=== PATIENT | male | born 1930 | race Caucasian/White ===

== ENCOUNTER 2018-05-01 12:10 | Inpatient (IN) | payer MEDICARE ==
[2018-05-01] MEDS: SODIUM CHLORIDE 0.9% 1L BAG IV* (12:46)
[2018-05-01 12:49] LABS: ADD MAN DIFF? NO
[2018-05-01 12:50] LABS: WHITE BLOOD COUNT 6.2 10^3/ul (4.8-10.8)
[2018-05-01 12:50] LABS: ABNORMAL IP MESSAGE 1; BASOPHILS % 0.3 % (0.0-2.0); EOSINOPHILS # 0.2 10^3/ul (0.0-0.5); EOSINOPHILS % 2.6 % (0.0-7.0); HEMATOCRIT 28.9 % (42.0-52.0); HEMOGLOBIN 8.7 g/dl (14.0-18.0); LYMPHOCYTES # 0.4 10^3/ul (0.8-2.9); LYMPHOCYTES % 5.7 % (15.0-51.0); MEAN CORPUSCULAR HEMOGLOBIN 27.2 pg (29.0-33.0); MEAN CORPUSCULAR HGB CONC 30.1 g/dl (32.0-37.0); MEAN CORPUSCULAR VOLUME 90.3 fl (82.0-101.0); MEAN PLATELET VOLUME 9.4 fl (7.4-10.4); MONOCYTE # 0.7 10^3/ul (0.3-0.9); MONOCYTES % 10.5 % (0.0-11.0); NEUTROPHILS % 80.1 % (39.0-77.0); PLATELET COUNT 292 10^3/UL (140-415); POSITIVE DIFF @See below; RED CELL DISTRIBUTION WIDTH 15.9 % (11.5-14.5)
[2018-05-01] MEDS: CEFEPIME 2GM/50 ML (PMX) 50 ML IVPB (13:00)
[2018-05-01 13:11] LABS: ALANINE AMINOTRANSFERASE 28 IU/L (13-69); ALBUMIN 3.4 g/dl (3.3-4.9); ALBUMIN/GLOBULIN RATIO 0.91; ALKALINE PHOSPHATASE 101 IU/L (42-121); ANION GAP 13 (8-16); ASPARTATE AMINO TRANSFERASE 22 IU/L (15-46); BILIRUBIN,INDIRECT 0.6 mg/dl (0-1.1); BILIRUBIN,TOTAL 0.6 mg/dl (0.2-1.3); BLOOD UREA NITROGEN 21 mg/dl (7-20); CALCIUM 8.7 mg/dl (8.4-10.2); CARBON DIOXIDE 25 mmol/L (21-31); CHLORIDE 109 mmol/L (97-110); CREATININE 1.43 mg/dl (0.61-1.24); GLUCOSE 111 mg/dl (70-220); POTASSIUM 5.1 mmol/L (3.5-5.1); SODIUM 142 mmol/L (135-144); TOTAL PROTEIN 7.1 g/dl (6.1-8.1)
[2018-05-01 13:12] LABS: LACTIC ACID 0.9 mmol/L (0.5-2.0)
[2018-05-01 13:14] LABS: INR 2.67; PROTIME 29.2 Sec (11.9-14.9); PT RATIO 2.3
[2018-05-01 13:16] LABS: PARTIAL THROMBOPLASTIN TIME 62.1 Sec (25.0-35.0)
[2018-05-01 13:22] LABS: TROPONIN-I 0.034 ng/ml (0.000-0.120)
[2018-05-01] MEDS: VANCOMYCIN 1 GM (PMX) 250 ML IVPB (13:30)
[2018-05-01 14:13] LABS: ADD UMIC YES; UR ASCORBIC ACID 40 mg/dL (NEGATIVE); UR BACTERIA MODERATE /HPF (NONE SEEN); UR BILIRUBIN (Dip) NEGATIVE (NEGATIVE); UR BLOOD (Dip) NEGATIVE (NEGATIVE); UR CLARITY SLIGHTLY CLOUDY (CLEAR); UR COLOR YELLOW (YELLOW); UR GLUCOSE (Dip) NEGATIVE (NEGATIVE); UR KETONES (Dip) NEGATIVE (NEGATIVE); UR LEUKOCYTE ESTERASE (Dip) 2+ Leu/ul (NEGATIVE); UR NITRITE (Dip) POSITIVE (NEGATIVE); UR RBC 1 /HPF (0-5); UR SPECIFIC GRAVITY (Dip) 1.013 (1.003-1.030); UR TOTAL PROTEIN (Dip) 1+ mg/dl (NEGATIVE); UR UROBILINOGEN (Dip) NEGATIVE (NEGATIVE); UR WBC 77 /HPF (0-5)
[2018-05-01] MEDS ORDERED: ONDANSETRON 4 MG INJ IV ×2 (14:30→15:00)
[2018-05-01] MEDS ORDERED: ACETAMINOPHEN 325 MG TAB PO (14:30)
[2018-05-01] MEDS ORDERED: MAGNESIUM HYDROXIDE 30ML CUP PO (15:00)
[2018-05-01] MEDS ORDERED: NACL 0.9% 3 ML SYG IV (15:00)
[2018-05-01] MEDS ORDERED: BISACODYL 10 MG SUPP PR (15:00)
[2018-05-01] MEDS ORDERED: ACETAMINOPHEN 650 MG SUPP PR (15:00)
[2018-05-01] MEDS: HYDROCODONE/APAP (5/325) TAB PO (16:11)
[2018-05-01] MEDS: ALBUTEROL/IPRATROPIUM (NEB) 3 ML AMP HHN ×3 (16:17→21:13)
[2018-05-01] MEDS: LEVOFLOXACIN 500MG/D5W (PMX) 100 ML IVPB (17:12)
[2018-05-01] MEDS ORDERED: FUROSEMIDE 20 MG INJ IV (18:00)
[2018-05-01] MEDS: FUROSEMIDE 40 MG INJ IV (18:13)
[2018-05-01 19:22] LABS: PLATELET COUNT 303 10^3/UL (140-415)
[2018-05-01 19:39] LABS: LACTIC ACID 0.9 mmol/L (0.5-2.0)
[2018-05-01 19:46] LABS: CREATINE KINASE 48 IU/L (23-200)
[2018-05-01 19:55] LABS: CK INDEX 2.3
[2018-05-01 19:57] LABS: CK-MB 1.09 ng/ml (0.0-2.4)
[2018-05-01 21:10] LABS: CREATININE,URINE RANDOM 102.59 mg/dl (20-370)
[2018-05-01 22:03] LABS: POTASSIUM 4.8 mmol/L (3.5-5.1)
[2018-05-01] MEDS: MONTELUKAST 10 MG TAB PO (23:46)
[2018-05-01] MEDS: ATORVASTATIN 20 MG TAB PO (23:46)
[2018-05-01] MEDS: TAMSULOSIN (SR) 0.4 MG CAP PO (23:46)
[2018-05-01] MEDS: ASCORBIC ACID 500 MG TAB PO (23:46)
[2018-05-02] MEDS: ALBUTEROL/IPRATROPIUM (NEB) 3 ML AMP HHN ×6 (00:23→20:51)
[2018-05-02 01:39] LABS: CREATINE KINASE 52 IU/L (23-200)
[2018-05-02 01:47] LABS: CK INDEX 2.3; TROPONIN-I 0.034 ng/ml (0.000-0.120)
[2018-05-02 01:51] LABS: CK-MB 1.21 ng/ml (0.0-2.4)
[2018-05-02] MEDS: morphine 2 MG INJ IV ×2 (02:27→06:10)
[2018-05-02 04:09] LABS: AADO2 Arterial 82.2 mmHg (7.0-24.0); Allen Test ACCEPTAB; Arterial Base Excess 0.2 mmol/L (-3.0-3); Arterial COHb 0.3 % (0.0-3.0); Arterial Fraction of Oxyhgb 95.5 % (93.0-99.0); Arterial HCO3 24.9 mmol/L (22.0-26.0); Arterial MetHb 0.2 % (0.0-1.5); Arterial Total Hemglobin 8.8 g/dl (12.0-18.0); Arterial pCO2 40.6 mmhg (35-45); MODE NASAL CANNULA; Site Right Radial
[2018-05-02] MEDS: hydrALAzine 20 MG INJ IV (04:15)
[2018-05-02] MEDS: FUROSEMIDE 40 MG INJ IV ×2 (05:16→17:32)
[2018-05-02] MEDS: PANTOPRAZOLE 40 MG INJ IV (05:16)
[2018-05-02 06:22] LABS: ADD MAN DIFF? NO
[2018-05-02 06:29] LABS: WHITE BLOOD COUNT 7.4 10^3/ul (4.8-10.8)
[2018-05-02 06:29] LABS: ABNORMAL IP MESSAGE 1; BASOPHILS % 0.1 % (0.0-2.0); EOSINOPHILS # 0.3 10^3/ul (0.0-0.5); EOSINOPHILS % 3.8 % (0.0-7.0); HEMATOCRIT 28.6 % (42.0-52.0); HEMOGLOBIN 8.5 g/dl (14.0-18.0); LYMPHOCYTES # 0.3 10^3/ul (0.8-2.9); LYMPHOCYTES % 4.6 % (15.0-51.0); MEAN CORPUSCULAR HEMOGLOBIN 26.9 pg (29.0-33.0); MEAN CORPUSCULAR HGB CONC 29.7 g/dl (32.0-37.0); MEAN CORPUSCULAR VOLUME 90.5 fl (82.0-101.0); MEAN PLATELET VOLUME 10.2 fl (7.4-10.4); MONOCYTE # 0.7 10^3/ul (0.3-0.9); MONOCYTES % 9.9 % (0.0-11.0); NEUTROPHILS % 80.9 % (39.0-77.0); PLATELET COUNT 305 10^3/UL (140-415); POSITIVE DIFF @See below; RED BLOOD COUNT 3.16 10^6/ul (4.70-6.10); RED CELL DISTRIBUTION WIDTH 15.9 % (11.5-14.5)
[2018-05-02 06:57] LABS: CREATINE KINASE 48 IU/L (23-200)
[2018-05-02 07:06] LABS: ALANINE AMINOTRANSFERASE 21 IU/L (13-69); ALBUMIN 2.8 g/dl (3.3-4.9); ALKALINE PHOSPHATASE 94 IU/L (42-121); ANION GAP 17 (8-16); ASPARTATE AMINO TRANSFERASE 16 IU/L (15-46); BILIRUBIN,INDIRECT 0.6 mg/dl (0-1.1); BILIRUBIN,TOTAL 0.6 mg/dl (0.2-1.3); BLOOD UREA NITROGEN 19 mg/dl (7-20); CALCIUM 8.6 mg/dl (8.4-10.2); CARBON DIOXIDE 24 mmol/L (21-31); CHLORIDE 107 mmol/L (97-110); CHOL/HDL RATIO 2.8 RATIO; CHOLESTEROL 130 mg/dl (100-200); CREATININE 1.32 mg/dl (0.61-1.24); GLUCOSE 112 mg/dl (70-220); HDL CHOLESTEROL 45 mg/dl (31-75); LDL CHOLESTEROL,CALCULATED 72 mg/dl; MAGNESIUM 1.9 mg/dl (1.7-2.5); PHOSPHORUS 3.6 mg/dl (2.5-4.9); POTASSIUM 4.8 mmol/L (3.5-5.1); SODIUM 143 mmol/L (135-144); TOTAL PROTEIN 5.9 g/dl (6.1-8.1); TRIGLYCERIDES 66 mg/dl (0-149)
[2018-05-02 07:15] LABS: FREE THYROXINE INDEX (Calc) 2.99 ug/ml (0.65-3.89); T3 UPTAKE 49.8 % (23.5-40.5)
[2018-05-02 07:48] LABS: CK INDEX 2.1; TROPONIN-I 0.043 ng/ml (0.000-0.120)
[2018-05-02 07:49] LABS: CK-MB 1.02 ng/ml (0.0-2.4)
[2018-05-02] MEDS: ACETAMINOPHEN 325 MG TAB PO (10:15)
[2018-05-02] MEDS: AMLODIPINE 5 MG TAB PO ×2 (10:15→10:41)
[2018-05-02] MEDS: FINASTERIDE 5 MG TAB PO (10:15)
[2018-05-02] MEDS: MULTIVITAMINS/MINERALS TAB PO (10:16)
[2018-05-02] MEDS: ASCORBIC ACID 500 MG TAB PO ×2 (10:16→21:33)
[2018-05-02] MEDS: FLUTICASONE/VILANTEROL 100-25 INH (10:17)
[2018-05-02] MEDS: MAGNESIUM SULFATE 2 GM/50 ML 50 ML IVPB (10:41)
[2018-05-02] MEDS ORDERED: VANCOMYCIN IV PER PHARMACY XX (12:00)
[2018-05-02] MEDS: PIPER-TAZO 2.25 GM (PMX) 50 ML IVPB ×2 (13:41→17:30)
[2018-05-02 14:22] LABS: INR 4.36; PROTIME 43.2 Sec (11.9-14.9); PT RATIO 3.4
[2018-05-02] MEDS: VANCOMYCIN 1.25 GM in SOD CHLORIDE 0.9% 250 ML IVPB (15:31)
[2018-05-02] MEDS ORDERED: LEVOFLOXACIN 250MG/D5W (PMX) 50 ML IVPB (16:00)
[2018-05-02] MEDS: EPOETIN 10000 UNITS/ML (NON ESRD/NON ONCOLOGY) SC (18:05)
[2018-05-02] MEDS: ATORVASTATIN 20 MG TAB PO (21:33)
[2018-05-02] MEDS: MONTELUKAST 10 MG TAB PO (21:33)
[2018-05-02] MEDS: TAMSULOSIN (SR) 0.4 MG CAP PO (21:33)
[2018-05-03] MEDS: PIPER-TAZO 2.25 GM (PMX) 50 ML IVPB ×3 (00:18→11:47)
[2018-05-03] MEDS: ALBUTEROL/IPRATROPIUM (NEB) 3 ML AMP HHN ×6 (01:45→21:22)
[2018-05-03] MEDS: PANTOPRAZOLE 40 MG INJ IV (05:40)
[2018-05-03] MEDS: FUROSEMIDE 40 MG INJ IV (05:41)
[2018-05-03 06:05] LABS: ADD MAN DIFF? NO
[2018-05-03 06:17] LABS: ABNORMAL IP MESSAGE 1; BASOPHILS % 0.1 % (0.0-2.0); EOSINOPHILS # 0.6 10^3/ul (0.0-0.5); EOSINOPHILS % 8.3 % (0.0-7.0); HEMATOCRIT 26.4 % (42.0-52.0); HEMOGLOBIN 8.1 g/dl (14.0-18.0); LYMPHOCYTES # 0.3 10^3/ul (0.8-2.9); LYMPHOCYTES % 4.7 % (15.0-51.0); MEAN CORPUSCULAR HEMOGLOBIN 27.5 pg (29.0-33.0); MEAN CORPUSCULAR HGB CONC 30.7 g/dl (32.0-37.0); MEAN CORPUSCULAR VOLUME 89.5 fl (82.0-101.0); MEAN PLATELET VOLUME 9.5 fl (7.4-10.4); MONOCYTE # 0.7 10^3/ul (0.3-0.9); MONOCYTES % 9.7 % (0.0-11.0); NEUTROPHIL # 5.5 10^3/ul (1.6-7.5); NEUTROPHILS % 76.6 % (39.0-77.0); PLATELET COUNT 286 10^3/UL (140-415); POSITIVE DIFF @See below; RED BLOOD COUNT 2.95 10^6/ul (4.70-6.10); RED CELL DISTRIBUTION WIDTH 15.9 % (11.5-14.5)
[2018-05-03 06:17] LABS: WHITE BLOOD COUNT 7.2 10^3/ul (4.8-10.8)
[2018-05-03 06:39] LABS: PROTIME 44.3 Sec (11.9-14.9); PT RATIO 3.5
[2018-05-03 06:43] LABS: ANION GAP 14 (8-16); BLOOD UREA NITROGEN 22 mg/dl (7-20); CALCIUM 8.5 mg/dl (8.4-10.2); CARBON DIOXIDE 29 mmol/L (21-31); CHLORIDE 104 mmol/L (97-110); GLUCOSE 100 mg/dl (70-220); MAGNESIUM 2.2 mg/dl (1.7-2.5); PHOSPHORUS 3.7 mg/dl (2.5-4.9); SODIUM 143 mmol/L (135-144)
[2018-05-03 06:56] LABS: IRON 15 ug/dl (35-150)
[2018-05-03 07:05] LABS: % IRON SATURATION 6 % SAT (22-52); TOTAL IRON BINDING CAPACITY 238 ug/dl (241-421)
[2018-05-03] MEDS: ASCORBIC ACID 500 MG TAB PO ×2 (08:55→21:09)
[2018-05-03] MEDS: FINASTERIDE 5 MG TAB PO (08:55)
[2018-05-03] MEDS: AMLODIPINE 5 MG TAB PO ×3 (08:55→21:09)
[2018-05-03] MEDS: MULTIVITAMINS/MINERALS TAB PO (08:56)
[2018-05-03] MEDS: FLUTICASONE/VILANTEROL 100-25 INH (08:56)
[2018-05-03] MEDS: FAMOTIDINE 20 MG TAB PO (11:43)
[2018-05-03] MEDS ORDERED: AMIKACIN IV PER PHARMACY XX (15:00)
[2018-05-03] MEDS: VANCOMYCIN 1.25 GM in SOD CHLORIDE 0.9% 250 ML IVPB (15:12)
[2018-05-03] MEDS: SOD FERRIC GLUC COMPLX 125 MG in SOD CHLORIDE 0.9% 100 ML IVPB (16:37)
[2018-05-03] MEDS: AMIKACIN 350 MG in SOD CHLORIDE 0.9% 100 ML IVPB (17:52)
[2018-05-03] MEDS: TAMSULOSIN (SR) 0.4 MG CAP PO (21:09)
[2018-05-03] MEDS: MONTELUKAST 10 MG TAB PO (21:09)
[2018-05-03] MEDS: ATORVASTATIN 20 MG TAB PO (21:09)
[2018-05-04] MEDS: ALBUTEROL/IPRATROPIUM (NEB) 3 ML AMP HHN ×6 (01:57→21:03)
[2018-05-04 06:14] LABS: ADD MAN DIFF? NO
[2018-05-04 06:24] LABS: ABNORMAL IP MESSAGE 1; BASOPHILS % 0.1 % (0.0-2.0); EOSINOPHILS # 0.9 10^3/ul (0.0-0.5); EOSINOPHILS % 12.9 % (0.0-7.0); HEMATOCRIT 26.5 % (42.0-52.0); HEMOGLOBIN 8.1 g/dl (14.0-18.0); LYMPHOCYTES # 0.4 10^3/ul (0.8-2.9); LYMPHOCYTES % 5.9 % (15.0-51.0); MEAN CORPUSCULAR HEMOGLOBIN 27.2 pg (29.0-33.0); MEAN CORPUSCULAR HGB CONC 30.6 g/dl (32.0-37.0); MEAN CORPUSCULAR VOLUME 88.9 fl (82.0-101.0); MEAN PLATELET VOLUME 9.9 fl (7.4-10.4); MONOCYTE # 0.7 10^3/ul (0.3-0.9); MONOCYTES % 9.8 % (0.0-11.0); NEUTROPHIL # 4.9 10^3/ul (1.6-7.5); NEUTROPHILS % 70.3 % (39.0-77.0); PLATELET COUNT 321 10^3/UL (140-415); POSITIVE DIFF @See below; RED BLOOD COUNT 2.98 10^6/ul (4.70-6.10)
[2018-05-04 06:24] LABS: WHITE BLOOD COUNT 6.9 10^3/ul (4.8-10.8)
[2018-05-04 06:58] LABS: ALANINE AMINOTRANSFERASE 28 IU/L (13-69); ALBUMIN 2.8 g/dl (3.3-4.9); ALBUMIN/GLOBULIN RATIO 0.82; ALKALINE PHOSPHATASE 76 IU/L (42-121); ANION GAP 11 (8-16); ASPARTATE AMINO TRANSFERASE 24 IU/L (15-46); BILIRUBIN,INDIRECT 0.6 mg/dl (0-1.1); BILIRUBIN,TOTAL 0.6 mg/dl (0.2-1.3); BLOOD UREA NITROGEN 23 mg/dl (7-20); CALCIUM 8.1 mg/dl (8.4-10.2); CARBON DIOXIDE 29 mmol/L (21-31); CHLORIDE 106 mmol/L (97-110); GLUCOSE 95 mg/dl (70-220); MAGNESIUM 2.1 mg/dl (1.7-2.5); PHOSPHORUS 3.6 mg/dl (2.5-4.9); POTASSIUM 3.9 mmol/L (3.5-5.1); SODIUM 142 mmol/L (135-144); TOTAL PROTEIN 6.2 g/dl (6.1-8.1)
[2018-05-04] MEDS: AMLODIPINE 5 MG TAB PO ×2 (10:08→20:17)
[2018-05-04] MEDS: FAMOTIDINE 20 MG TAB PO (10:08)
[2018-05-04] MEDS: FUROSEMIDE 40 MG TAB PO (10:08)
[2018-05-04] MEDS: ASCORBIC ACID 500 MG TAB PO ×2 (10:08→20:19)
[2018-05-04] MEDS: FINASTERIDE 5 MG TAB PO (10:08)
[2018-05-04] MEDS: MULTIVITAMINS/MINERALS TAB PO (10:09)
[2018-05-04] MEDS: FLUTICASONE/VILANTEROL 100-25 INH (10:14)
[2018-05-04 14:08] LABS: INR 2.86; PROTIME 30.8 Sec (11.9-14.9); PT RATIO 2.4
[2018-05-04] MEDS: SOD FERRIC GLUC COMPLX 125 MG in SOD CHLORIDE 0.9% 100 ML IVPB (17:30)
[2018-05-04] MEDS: AMIKACIN 350 MG in SOD CHLORIDE 0.9% 100 ML IVPB (18:20)
[2018-05-04] MEDS: ATORVASTATIN 20 MG TAB PO (20:19)
[2018-05-04] MEDS: TAMSULOSIN (SR) 0.4 MG CAP PO (20:19)
[2018-05-04] MEDS: MONTELUKAST 10 MG TAB PO (20:19)
[2018-05-04] MEDS: FOSFOMYCIN 3 GM PACKET PO (22:13)
[2018-05-04] MEDS: DOCUSATE SODIUM 100 MG CAP PO (22:13)
[2018-05-05] MEDS: ALBUTEROL/IPRATROPIUM (NEB) 3 ML AMP HHN ×6 (01:00→20:36)
[2018-05-05 06:19] LABS: ADD MAN DIFF? NO
[2018-05-05 06:29] LABS: WHITE BLOOD COUNT 7.9 10^3/ul (4.8-10.8)
[2018-05-05 06:29] LABS: ABNORMAL IP MESSAGE 1; BASOPHILS % 0.3 % (0.0-2.0); EOSINOPHILS # 0.8 10^3/ul (0.0-0.5); EOSINOPHILS % 9.9 % (0.0-7.0); HEMATOCRIT 27.3 % (42.0-52.0); HEMOGLOBIN 8.3 g/dl (14.0-18.0); LYMPHOCYTES # 0.4 10^3/ul (0.8-2.9); LYMPHOCYTES % 5.4 % (15.0-51.0); MEAN CORPUSCULAR HEMOGLOBIN 27.3 pg (29.0-33.0); MEAN CORPUSCULAR HGB CONC 30.4 g/dl (32.0-37.0); MEAN CORPUSCULAR VOLUME 89.8 fl (82.0-101.0); MEAN PLATELET VOLUME 9.9 fl (7.4-10.4); MONOCYTE # 0.8 10^3/ul (0.3-0.9); MONOCYTES % 9.5 % (0.0-11.0); NEUTROPHIL # 5.7 10^3/ul (1.6-7.5); NEUTROPHILS % 72.5 % (39.0-77.0); PLATELET COUNT 350 10^3/UL (140-415); POSITIVE DIFF @See below; RED BLOOD COUNT 3.04 10^6/ul (4.70-6.10); RED CELL DISTRIBUTION WIDTH 16.1 % (11.5-14.5)
[2018-05-05 06:43] LABS: INR 2.39; PROTIME 26.7 Sec (11.9-14.9); PT RATIO 2.1
[2018-05-05 06:51] LABS: ALANINE AMINOTRANSFERASE 26 IU/L (13-69); ALBUMIN/GLOBULIN RATIO 0.85; ALKALINE PHOSPHATASE 88 IU/L (42-121); ANION GAP 13 (8-16); ASPARTATE AMINO TRANSFERASE 26 IU/L (15-46); BILIRUBIN,INDIRECT 0.7 mg/dl (0-1.1); BILIRUBIN,TOTAL 0.7 mg/dl (0.2-1.3); BLOOD UREA NITROGEN 20 mg/dl (7-20); CALCIUM 8.4 mg/dl (8.4-10.2); CARBON DIOXIDE 29 mmol/L (21-31); CHLORIDE 106 mmol/L (97-110); GLUCOSE 125 mg/dl (70-220); MAGNESIUM 2.1 mg/dl (1.7-2.5); PHOSPHORUS 3.4 mg/dl (2.5-4.9); POTASSIUM 4.1 mmol/L (3.5-5.1); SODIUM 144 mmol/L (135-144); TOTAL PROTEIN 6.5 g/dl (6.1-8.1)
[2018-05-05] MEDS: FINASTERIDE 5 MG TAB PO (08:49)
[2018-05-05] MEDS: ASCORBIC ACID 500 MG TAB PO ×2 (08:49→20:59)
[2018-05-05] MEDS: FUROSEMIDE 40 MG TAB PO (08:49)
[2018-05-05] MEDS: MULTIVITAMINS/MINERALS TAB PO (08:50)
[2018-05-05] MEDS: FAMOTIDINE 20 MG TAB PO (08:50)
[2018-05-05] MEDS: AMLODIPINE 5 MG TAB PO ×2 (08:51→21:01)
[2018-05-05] MEDS: FLUTICASONE/VILANTEROL 100-25 INH (09:32)
[2018-05-05] MEDS: LORATADINE 10 MG TAB PO (14:06)
[2018-05-05] MEDS: AMIKACIN 350 MG in SOD CHLORIDE 0.9% 100 ML IVPB (17:53)
[2018-05-05] MEDS: WARFARIN 2 MG TAB PO (17:54)
[2018-05-05] MEDS: EPOETIN 10000 UNITS/ML (NON ESRD/NON ONCOLOGY) SC (17:55)
[2018-05-05] MEDS: SOD FERRIC GLUC COMPLX 125 MG in SOD CHLORIDE 0.9% 100 ML IVPB (18:56)
[2018-05-05] MEDS: TAMSULOSIN (SR) 0.4 MG CAP PO (20:59)
[2018-05-05] MEDS: ATORVASTATIN 20 MG TAB PO (20:59)
[2018-05-05] MEDS: MONTELUKAST 10 MG TAB PO (20:59)
[2018-05-06] MEDS: ALBUTEROL/IPRATROPIUM (NEB) 3 ML AMP HHN ×4 (02:13→20:47)
[2018-05-06 09:18] LABS: ADD MAN DIFF? NO
[2018-05-06 09:21] LABS: ABNORMAL IP MESSAGE 1; BASOPHILS % 0.2 % (0.0-2.0); EOSINOPHILS # 0.9 10^3/ul (0.0-0.5); EOSINOPHILS % 9.9 % (0.0-7.0); HEMATOCRIT 29.1 % (42.0-52.0); HEMOGLOBIN 8.8 g/dl (14.0-18.0); LYMPHOCYTES # 0.5 10^3/ul (0.8-2.9); LYMPHOCYTES % 5.1 % (15.0-51.0); MEAN CORPUSCULAR HEMOGLOBIN 26.9 pg (29.0-33.0); MEAN CORPUSCULAR HGB CONC 30.2 g/dl (32.0-37.0); MEAN PLATELET VOLUME 9.8 fl (7.4-10.4); MONOCYTE # 0.7 10^3/ul (0.3-0.9); MONOCYTES % 7.5 % (0.0-11.0); NEUTROPHIL # 6.8 10^3/ul (1.6-7.5); NEUTROPHILS % 74.8 % (39.0-77.0); NUCLEATED RED BLOOD CELLS% 0.2 /100WBC (0.0-0.0); PLATELET COUNT 338 10^3/UL (140-415); POSITIVE DIFF @See below; RED BLOOD COUNT 3.27 10^6/ul (4.70-6.10); RED CELL DISTRIBUTION WIDTH 16.3 % (11.5-14.5)
[2018-05-06 09:21] LABS: WHITE BLOOD COUNT 9.1 10^3/ul (4.8-10.8)
[2018-05-06] MEDS: LORATADINE 10 MG TAB PO (09:33)
[2018-05-06] MEDS: AMLODIPINE 5 MG TAB PO ×2 (09:33→21:05)
[2018-05-06] MEDS: FAMOTIDINE 20 MG TAB PO (09:34)
[2018-05-06] MEDS: FINASTERIDE 5 MG TAB PO (09:34)
[2018-05-06] MEDS: FUROSEMIDE 40 MG TAB PO (09:34)
[2018-05-06] MEDS: MULTIVITAMINS/MINERALS TAB PO (09:34)
[2018-05-06] MEDS: ASCORBIC ACID 500 MG TAB PO ×2 (09:35→21:04)
[2018-05-06 09:44] LABS: MAGNESIUM 2.1 mg/dl (1.7-2.5)
[2018-05-06 09:44] LABS: PHOSPHORUS 3.4 mg/dl (2.5-4.9)
[2018-05-06 09:45] LABS: ALANINE AMINOTRANSFERASE 24 IU/L (13-69); ALBUMIN 3.5 g/dl (3.3-4.9); ALBUMIN/GLOBULIN RATIO 1.12; ALKALINE PHOSPHATASE 94 IU/L (42-121); ANION GAP 16 (8-16); ASPARTATE AMINO TRANSFERASE 26 IU/L (15-46); BILIRUBIN,INDIRECT 0.6 mg/dl (0-1.1); BILIRUBIN,TOTAL 0.6 mg/dl (0.2-1.3); BLOOD UREA NITROGEN 19 mg/dl (7-20); CALCIUM 8.5 mg/dl (8.4-10.2); CARBON DIOXIDE 27 mmol/L (21-31); CHLORIDE 105 mmol/L (97-110); CREATININE 1.32 mg/dl (0.61-1.24); GLUCOSE 136 mg/dl (70-220); POTASSIUM 4.1 mmol/L (3.5-5.1); SODIUM 144 mmol/L (135-144); TOTAL PROTEIN 6.6 g/dl (6.1-8.1)
[2018-05-06 09:54] LABS: INR 2.16; PROTIME 24.6 Sec (11.9-14.9); PT RATIO 1.9
[2018-05-06] MEDS: FUROSEMIDE 20 MG INJ IV (10:44)
[2018-05-06] MEDS: CEFEPIME 1GM/50 ML (PMX) 50 ML IVPB ×2 (13:19→21:03)
[2018-05-06] MEDS: FLUTICASONE/VILANTEROL 100-25 INH (13:36)
[2018-05-06] MEDS: WARFARIN 2 MG TAB PO (17:41)
[2018-05-06] MEDS: SOD FERRIC GLUC COMPLX 125 MG in SOD CHLORIDE 0.9% 100 ML IVPB (17:41)
[2018-05-06] MEDS: MONTELUKAST 10 MG TAB PO (21:04)
[2018-05-06] MEDS: TAMSULOSIN (SR) 0.4 MG CAP PO (21:04)
[2018-05-06] MEDS: ATORVASTATIN 20 MG TAB PO (21:04)
[2018-05-07] MEDS: ALBUTEROL/IPRATROPIUM (NEB) 3 ML AMP HHN ×4 (01:32→20:40)
[2018-05-07 05:25] LABS: ADD MAN DIFF? NO
[2018-05-07 05:40] LABS: WHITE BLOOD COUNT 9.1 10^3/ul (4.8-10.8)
[2018-05-07 05:40] LABS: ABNORMAL IP MESSAGE 1; BASOPHILS % 0.2 % (0.0-2.0); EOSINOPHILS # 0.8 10^3/ul (0.0-0.5); EOSINOPHILS % 9.2 % (0.0-7.0); HEMATOCRIT 25.3 % (42.0-52.0); HEMOGLOBIN 7.7 g/dl (14.0-18.0); LYMPHOCYTES # 0.4 10^3/ul (0.8-2.9); LYMPHOCYTES % 4.1 % (15.0-51.0); MEAN CORPUSCULAR HEMOGLOBIN 27.3 pg (29.0-33.0); MEAN CORPUSCULAR HGB CONC 30.4 g/dl (32.0-37.0); MEAN CORPUSCULAR VOLUME 89.7 fl (82.0-101.0); MEAN PLATELET VOLUME 9.6 fl (7.4-10.4); MONOCYTE # 0.8 10^3/ul (0.3-0.9); MONOCYTES % 9.1 % (0.0-11.0); NEUTROPHIL # 6.7 10^3/ul (1.6-7.5); NEUTROPHILS % 73.4 % (39.0-77.0); NUCLEATED RED BLOOD CELLS% 0.4 /100WBC (0.0-0.0); PLATELET COUNT 318 10^3/UL (140-415); POSITIVE DIFF @See below; RED BLOOD COUNT 2.82 10^6/ul (4.70-6.10); RED CELL DISTRIBUTION WIDTH 16.6 % (11.5-14.5)
[2018-05-07 05:56] LABS: INR 2.23; PROTIME 25.3 Sec (11.9-14.9)
[2018-05-07 06:31] LABS: PHOSPHORUS 3.6 mg/dl (2.5-4.9)
[2018-05-07 06:31] LABS: MAGNESIUM 2.1 mg/dl (1.7-2.5)
[2018-05-07 07:00] LABS: ANION GAP 12 (8-16); BLOOD UREA NITROGEN 21 mg/dl (7-20); CALCIUM 8.1 mg/dl (8.4-10.2); CARBON DIOXIDE 26 mmol/L (21-31); CHLORIDE 108 mmol/L (97-110); CREATININE 1.47 mg/dl (0.61-1.24); GLUCOSE 101 mg/dl (70-220); POTASSIUM 3.9 mmol/L (3.5-5.1); SODIUM 142 mmol/L (135-144)
[2018-05-07] MEDS: CEFEPIME 1GM/50 ML (PMX) 50 ML IVPB (08:42)
[2018-05-07] MEDS: FLUTICASONE/VILANTEROL 100-25 INH (08:42)
[2018-05-07] MEDS: FAMOTIDINE 20 MG TAB PO (08:44)
[2018-05-07] MEDS: ASCORBIC ACID 500 MG TAB PO ×2 (08:44→20:59)
[2018-05-07] MEDS: FINASTERIDE 5 MG TAB PO (08:45)
[2018-05-07] MEDS: LORATADINE 10 MG TAB PO (08:45)
[2018-05-07] MEDS: FUROSEMIDE 40 MG TAB PO (08:45)
[2018-05-07] MEDS: AMLODIPINE 5 MG TAB PO ×2 (08:46→20:58)
[2018-05-07] MEDS: MULTIVITAMINS/MINERALS TAB PO (08:46)
[2018-05-07] MEDS: TRIAMCINOLONE ACET 0.025% 15 GM CR TOP ×2 (13:31→20:59)
[2018-05-07] MEDS: SOD FERRIC GLUC COMPLX 125 MG in SOD CHLORIDE 0.9% 100 ML IVPB (16:48)
[2018-05-07] MEDS: WARFARIN 2 MG TAB PO (16:49)
[2018-05-07] MEDS: EPOETIN 10000 UNITS/ML (NON ESRD/NON ONCOLOGY) SC (16:50)
[2018-05-07] MEDS: MEROPENEM 500MG/50 ML (PMX) 50 ML IVPB (20:57)
[2018-05-07] MEDS: ATORVASTATIN 20 MG TAB PO (20:58)
[2018-05-07] MEDS: TAMSULOSIN (SR) 0.4 MG CAP PO (20:58)
[2018-05-07] MEDS: MONTELUKAST 10 MG TAB PO (20:59)
[2018-05-08] MEDS: ALBUTEROL/IPRATROPIUM (NEB) 3 ML AMP HHN ×4 (01:01→23:01)
[2018-05-08 06:15] LABS: ADD MAN DIFF? NO
[2018-05-08 06:21] LABS: ABNORMAL IP MESSAGE 1; BASOPHILS % 0.2 % (0.0-2.0); EOSINOPHILS # 0.3 10^3/ul (0.0-0.5); EOSINOPHILS % 2.5 % (0.0-7.0); HEMATOCRIT 26.2 % (42.0-52.0); LYMPHOCYTES # 0.4 10^3/ul (0.8-2.9); LYMPHOCYTES % 3.5 % (15.0-51.0); MEAN CORPUSCULAR HEMOGLOBIN 27.5 pg (29.0-33.0); MEAN CORPUSCULAR HGB CONC 30.5 g/dl (32.0-37.0); MEAN PLATELET VOLUME 9.9 fl (7.4-10.4); MONOCYTES % 10.3 % (0.0-11.0); NEUTROPHIL # 7.9 10^3/ul (1.6-7.5); NEUTROPHILS % 79.3 % (39.0-77.0); NUCLEATED RED BLOOD CELLS% 0.3 /100WBC (0.0-0.0); PLATELET COUNT 335 10^3/UL (140-415); POSITIVE DIFF @See below; RED BLOOD COUNT 2.91 10^6/ul (4.70-6.10); RED CELL DISTRIBUTION WIDTH 17.4 % (11.5-14.5)
[2018-05-08 06:42] LABS: INR 2.51; PROTIME 27.8 Sec (11.9-14.9); PT RATIO 2.2
[2018-05-08 06:44] LABS: MAGNESIUM 2.2 mg/dl (1.7-2.5)
[2018-05-08 06:44] LABS: PHOSPHORUS 4.3 mg/dl (2.5-4.9)
[2018-05-08 06:55] LABS: ANION GAP 13 (8-16); BLOOD UREA NITROGEN 25 mg/dl (7-20); CALCIUM 8.4 mg/dl (8.4-10.2); CARBON DIOXIDE 25 mmol/L (21-31); CHLORIDE 108 mmol/L (97-110); CREATININE 1.56 mg/dl (0.61-1.24); GLUCOSE 113 mg/dl (70-220); POTASSIUM 4.3 mmol/L (3.5-5.1); SODIUM 142 mmol/L (135-144)
[2018-05-08] MEDS: FUROSEMIDE 40 MG TAB PO ×2 (08:39→20:42)
[2018-05-08] MEDS: AMLODIPINE 5 MG TAB PO ×2 (08:39→20:43)
[2018-05-08] MEDS: ASCORBIC ACID 500 MG TAB PO ×2 (08:39→20:43)
[2018-05-08] MEDS: MULTIVITAMINS/MINERALS TAB PO (08:39)
[2018-05-08] MEDS: FAMOTIDINE 20 MG TAB PO (08:39)
[2018-05-08] MEDS: LORATADINE 10 MG TAB PO (08:40)
[2018-05-08] MEDS: FLUTICASONE/VILANTEROL 100-25 INH (08:40)
[2018-05-08] MEDS: FINASTERIDE 5 MG TAB PO (08:40)
[2018-05-08] MEDS: TRIAMCINOLONE ACET 0.025% 15 GM CR TOP ×2 (08:42→20:46)
[2018-05-08] MEDS: MEROPENEM 500MG/50 ML (PMX) 50 ML IVPB ×2 (11:01→20:44)
[2018-05-08] MEDS: TAMSULOSIN (SR) 0.4 MG CAP PO (20:42)
[2018-05-08] MEDS: MONTELUKAST 10 MG TAB PO (20:43)
[2018-05-08] MEDS: ATORVASTATIN 20 MG TAB PO (20:43)
[2018-05-09 05:51] LABS: ADD MAN DIFF? NO
[2018-05-09 05:54] LABS: WHITE BLOOD COUNT 9.8 10^3/ul (4.8-10.8)
[2018-05-09 05:54] LABS: ABNORMAL IP MESSAGE 1; BASOPHILS % 0.2 % (0.0-2.0); EOSINOPHILS # 0.5 10^3/ul (0.0-0.5); EOSINOPHILS % 5.2 % (0.0-7.0); HEMOGLOBIN 7.9 g/dl (14.0-18.0); LYMPHOCYTES # 0.4 10^3/ul (0.8-2.9); LYMPHOCYTES % 3.8 % (15.0-51.0); MEAN CORPUSCULAR HEMOGLOBIN 27.7 pg (29.0-33.0); MEAN CORPUSCULAR HGB CONC 30.4 g/dl (32.0-37.0); MEAN CORPUSCULAR VOLUME 91.2 fl (82.0-101.0); MEAN PLATELET VOLUME 10.1 fl (7.4-10.4); MONOCYTE # 0.9 10^3/ul (0.3-0.9); MONOCYTES % 9.1 % (0.0-11.0); NEUTROPHIL # 7.6 10^3/ul (1.6-7.5); NEUTROPHILS % 77.4 % (39.0-77.0); NUCLEATED RED BLOOD CELLS% 0.4 /100WBC (0.0-0.0); PLATELET COUNT 298 10^3/UL (140-415); POSITIVE DIFF @See below; RED BLOOD COUNT 2.85 10^6/ul (4.70-6.10); RED CELL DISTRIBUTION WIDTH 18.2 % (11.5-14.5)
[2018-05-09 06:17] LABS: PROTIME 29.4 Sec (11.9-14.9); PT RATIO 2.3
[2018-05-09 06:18] LABS: ANION GAP 15 (8-16); BLOOD UREA NITROGEN 32 mg/dl (7-20); CALCIUM 8.3 mg/dl (8.4-10.2); CARBON DIOXIDE 24 mmol/L (21-31); CHLORIDE 107 mmol/L (97-110); CREATININE 1.69 mg/dl (0.61-1.24); GLUCOSE 108 mg/dl (70-220); POTASSIUM 4.2 mmol/L (3.5-5.1); SODIUM 142 mmol/L (135-144)
[2018-05-09 06:32] LABS: MAGNESIUM 2.3 mg/dl (1.7-2.5)
[2018-05-09 06:32] LABS: PHOSPHORUS 4.4 mg/dl (2.5-4.9)
[2018-05-09] MEDS: MEROPENEM 500MG/50 ML (PMX) 50 ML IVPB ×2 (08:50→22:25)
[2018-05-09] MEDS: FLUTICASONE/VILANTEROL 100-25 INH (08:50)
[2018-05-09] MEDS: FAMOTIDINE 20 MG TAB PO (08:51)
[2018-05-09] MEDS: FINASTERIDE 5 MG TAB PO (08:51)
[2018-05-09] MEDS: ASCORBIC ACID 500 MG TAB PO ×2 (08:51→22:27)
[2018-05-09] MEDS: MULTIVITAMINS/MINERALS TAB PO (08:51)
[2018-05-09] MEDS: LORATADINE 10 MG TAB PO (08:51)
[2018-05-09] MEDS: AMLODIPINE 5 MG TAB PO ×2 (08:52→22:26)
[2018-05-09] MEDS: TRIAMCINOLONE ACET 0.025% 15 GM CR TOP ×2 (08:52→22:28)
[2018-05-09] MEDS: FUROSEMIDE 40 MG TAB PO ×2 (08:52→22:26)
[2018-05-09] MEDS: ALBUTEROL/IPRATROPIUM (NEB) 3 ML AMP HHN (09:52)
[2018-05-09] MEDS: EPOETIN 10000 UNITS/ML (NON ESRD/NON ONCOLOGY) SC (18:29)
[2018-05-09] MEDS: MONTELUKAST 10 MG TAB PO (22:26)
[2018-05-09] MEDS: ATORVASTATIN 20 MG TAB PO (22:27)
[2018-05-09] MEDS: TAMSULOSIN (SR) 0.4 MG CAP PO (22:27)
[2018-05-10] MEDS: ALBUTEROL/IPRATROPIUM (NEB) 3 ML AMP HHN (00:21)
[2018-05-10 06:01] LABS: ADD MAN DIFF? NO
[2018-05-10 06:21] LABS: ABNORMAL IP MESSAGE 1; BASOPHILS % 0.3 % (0.0-2.0); EOSINOPHILS % 9.2 % (0.0-7.0); HEMATOCRIT 25.8 % (42.0-52.0); HEMOGLOBIN 7.9 g/dl (14.0-18.0); LYMPHOCYTES # 0.5 10^3/ul (0.8-2.9); LYMPHOCYTES % 4.4 % (15.0-51.0); MEAN CORPUSCULAR HEMOGLOBIN 27.9 pg (29.0-33.0); MEAN CORPUSCULAR HGB CONC 30.6 g/dl (32.0-37.0); MEAN CORPUSCULAR VOLUME 91.2 fl (82.0-101.0); MEAN PLATELET VOLUME 9.6 fl (7.4-10.4); MONOCYTE # 0.9 10^3/ul (0.3-0.9); MONOCYTES % 8.6 % (0.0-11.0); NEUTROPHIL # 7.6 10^3/ul (1.6-7.5); NEUTROPHILS % 72.6 % (39.0-77.0); NUCLEATED RED BLOOD CELLS # 0.1 10^3/ul (0.0-0.0); NUCLEATED RED BLOOD CELLS% 0.5 /100WBC (0.0-0.0); PLATELET COUNT 334 10^3/UL (140-415); POSITIVE DIFF @See below; RED BLOOD COUNT 2.83 10^6/ul (4.70-6.10); RED CELL DISTRIBUTION WIDTH 18.6 % (11.5-14.5)
[2018-05-10 06:21] LABS: WHITE BLOOD COUNT 10.5 10^3/ul (4.8-10.8)
[2018-05-10 06:35] LABS: INR 2.14; PROTIME 24.4 Sec (11.9-14.9); PT RATIO 1.9
[2018-05-10 06:51] LABS: ANION GAP 15 (8-16); BLOOD UREA NITROGEN 40 mg/dl (7-20); CALCIUM 8.6 mg/dl (8.4-10.2); CARBON DIOXIDE 25 mmol/L (21-31); CHLORIDE 106 mmol/L (97-110); CREATININE 1.91 mg/dl (0.61-1.24); GLUCOSE 117 mg/dl (70-220); POTASSIUM 4.1 mmol/L (3.5-5.1); SODIUM 142 mmol/L (135-144)
[2018-05-10 06:55] LABS: PHOSPHORUS 4.3 mg/dl (2.5-4.9)
[2018-05-10 06:55] LABS: MAGNESIUM 2.4 mg/dl (1.7-2.5)
[2018-05-10] MEDS: FUROSEMIDE 40 MG TAB PO (09:11)
[2018-05-10] MEDS: MEROPENEM 500MG/50 ML (PMX) 50 ML IVPB ×2 (09:11→21:27)
[2018-05-10] MEDS: AMLODIPINE 5 MG TAB PO ×2 (09:12→21:00)
[2018-05-10] MEDS: MULTIVITAMINS/MINERALS TAB PO (09:12)
[2018-05-10] MEDS: LORATADINE 10 MG TAB PO (09:12)
[2018-05-10] MEDS: ASCORBIC ACID 500 MG TAB PO ×2 (09:12→21:29)
[2018-05-10] MEDS: FINASTERIDE 5 MG TAB PO (09:13)
[2018-05-10] MEDS: FLUTICASONE/VILANTEROL 100-25 INH (09:13)
[2018-05-10] MEDS: FAMOTIDINE 20 MG TAB PO (09:13)
[2018-05-10] MEDS: TRIAMCINOLONE ACET 0.025% 15 GM CR TOP ×2 (09:14→21:33)
[2018-05-10] MEDS: TAMSULOSIN (SR) 0.4 MG CAP PO (21:27)
[2018-05-10] MEDS: MONTELUKAST 10 MG TAB PO (21:27)
[2018-05-10] MEDS: ATORVASTATIN 20 MG TAB PO (21:28)
[2018-05-11 06:12] LABS: ADD MAN DIFF? NO
[2018-05-11 06:18] LABS: ABNORMAL IP MESSAGE 1; BASOPHILS % 0.2 % (0.0-2.0); EOSINOPHILS # 0.8 10^3/ul (0.0-0.5); EOSINOPHILS % 6.1 % (0.0-7.0); HEMATOCRIT 26.2 % (42.0-52.0); LYMPHOCYTES # 0.4 10^3/ul (0.8-2.9); LYMPHOCYTES % 2.7 % (15.0-51.0); MEAN CORPUSCULAR HEMOGLOBIN 28.1 pg (29.0-33.0); MEAN CORPUSCULAR HGB CONC 30.5 g/dl (32.0-37.0); MEAN CORPUSCULAR VOLUME 91.9 fl (82.0-101.0); MEAN PLATELET VOLUME 9.6 fl (7.4-10.4); MONOCYTE # 1.3 10^3/ul (0.3-0.9); MONOCYTES % 9.6 % (0.0-11.0); NEUTROPHIL # 10.2 10^3/ul (1.6-7.5); NEUTROPHILS % 78.1 % (39.0-77.0); NUCLEATED RED BLOOD CELLS% 0.2 /100WBC (0.0-0.0); PLATELET COUNT 332 10^3/UL (140-415); POSITIVE DIFF @See below; RED BLOOD COUNT 2.85 10^6/ul (4.70-6.10); RED CELL DISTRIBUTION WIDTH 19.5 % (11.5-14.5)
[2018-05-11 06:39] LABS: INR 1.84; PROTIME 21.7 Sec (11.9-14.9); PT RATIO 1.7
[2018-05-11 07:19] LABS: ANION GAP 16 (8-16); BLOOD UREA NITROGEN 45 mg/dl (7-20); CALCIUM 8.4 mg/dl (8.4-10.2); CARBON DIOXIDE 24 mmol/L (21-31); CHLORIDE 105 mmol/L (97-110); GLUCOSE 105 mg/dl (70-220); POTASSIUM 3.9 mmol/L (3.5-5.1); SODIUM 141 mmol/L (135-144)
[2018-05-11 07:22] LABS: PHOSPHORUS 4.4 mg/dl (2.5-4.9)
[2018-05-11 07:22] LABS: MAGNESIUM 2.4 mg/dl (1.7-2.5)
[2018-05-11] MEDS: MEROPENEM 500MG/50 ML (PMX) 50 ML IVPB ×2 (09:29→20:55)
[2018-05-11] MEDS: FINASTERIDE 5 MG TAB PO (09:30)
[2018-05-11] MEDS: FUROSEMIDE 40 MG TAB PO ×2 (09:30→18:03)
[2018-05-11] MEDS: AMLODIPINE 5 MG TAB PO ×2 (09:30→20:57)
[2018-05-11] MEDS: MULTIVITAMINS/MINERALS TAB PO (09:30)
[2018-05-11] MEDS: ASCORBIC ACID 500 MG TAB PO ×2 (09:30→20:55)
[2018-05-11] MEDS: FAMOTIDINE 20 MG TAB PO (09:30)
[2018-05-11] MEDS: LORATADINE 10 MG TAB PO (09:30)
[2018-05-11] MEDS: FLUTICASONE/VILANTEROL 100-25 INH (09:31)
[2018-05-11] MEDS: TRIAMCINOLONE ACET 0.025% 15 GM CR TOP ×2 (09:31→20:57)
[2018-05-11] MEDS: TAMSULOSIN (SR) 0.4 MG CAP PO (20:54)
[2018-05-11] MEDS: MONTELUKAST 10 MG TAB PO (20:54)
[2018-05-11] MEDS: ATORVASTATIN 20 MG TAB PO (20:55)
[2018-05-12] MEDS: FUROSEMIDE 40 MG TAB PO ×2 (05:24→18:08)
[2018-05-12 06:20] LABS: ADD MAN DIFF? NO
[2018-05-12 06:31] LABS: ABNORMAL IP MESSAGE 1; BASOPHILS % 0.1 % (0.0-2.0); EOSINOPHILS # 0.3 10^3/ul (0.0-0.5); EOSINOPHILS % 2.2 % (0.0-7.0); HEMOGLOBIN 7.2 g/dl (14.0-18.0); LYMPHOCYTES # 0.4 10^3/ul (0.8-2.9); LYMPHOCYTES % 3.9 % (15.0-51.0); MEAN CORPUSCULAR HEMOGLOBIN 27.6 pg (29.0-33.0); MEAN PLATELET VOLUME 9.7 fl (7.4-10.4); MONOCYTE # 0.9 10^3/ul (0.3-0.9); MONOCYTES % 8.1 % (0.0-11.0); NEUTROPHIL # 9.3 10^3/ul (1.6-7.5); NEUTROPHILS % 83.4 % (39.0-77.0); NUCLEATED RED BLOOD CELLS% 0.2 /100WBC (0.0-0.0); PLATELET COUNT 311 10^3/UL (140-415); POSITIVE DIFF @See below; RED BLOOD COUNT 2.61 10^6/ul (4.70-6.10); RED CELL DISTRIBUTION WIDTH 20.1 % (11.5-14.5)
[2018-05-12 06:31] LABS: WHITE BLOOD COUNT 11.1 10^3/ul (4.8-10.8)
[2018-05-12 06:44] LABS: INR 1.54; PROTIME 18.8 Sec (11.9-14.9); PT RATIO 1.5
[2018-05-12 06:52] LABS: MAGNESIUM 2.4 mg/dl (1.7-2.5)
[2018-05-12 06:52] LABS: PHOSPHORUS 4.4 mg/dl (2.5-4.9)
[2018-05-12 07:02] LABS: ANION GAP 14 (8-16); BLOOD UREA NITROGEN 48 mg/dl (7-20); CALCIUM 8.2 mg/dl (8.4-10.2); CARBON DIOXIDE 24 mmol/L (21-31); CHLORIDE 106 mmol/L (97-110); CREATININE 2.14 mg/dl (0.61-1.24); GLUCOSE 102 mg/dl (70-220); POTASSIUM 3.4 mmol/L (3.5-5.1); SODIUM 141 mmol/L (135-144)
[2018-05-12] MEDS: MEROPENEM 500MG/50 ML (PMX) 50 ML IVPB (09:00)
[2018-05-12] MEDS: FLUTICASONE/VILANTEROL 100-25 INH (09:00)
[2018-05-12] MEDS: TRIAMCINOLONE ACET 0.025% 15 GM CR TOP ×2 (09:00→21:29)
[2018-05-12] MEDS: LORATADINE 10 MG TAB PO (10:12)
[2018-05-12] MEDS: FAMOTIDINE 20 MG TAB PO (10:12)
[2018-05-12] MEDS: AMLODIPINE 5 MG TAB PO ×2 (10:12→21:28)
[2018-05-12] MEDS: MULTIVITAMINS/MINERALS TAB PO (10:13)
[2018-05-12] MEDS: ASCORBIC ACID 500 MG TAB PO ×2 (10:13→21:28)
[2018-05-12] MEDS: POTASSIUM CHLORIDE (SR) 10 MEQ TAB PO (10:13)
[2018-05-12] MEDS: FINASTERIDE 5 MG TAB PO (10:14)
[2018-05-12 12:26] LABS: ADD MAN DIFF? NO
[2018-05-12 12:41] LABS: WHITE BLOOD COUNT 10.7 10^3/ul (4.8-10.8)
[2018-05-12 12:41] LABS: ABNORMAL IP MESSAGE 1; BASOPHILS % 0.2 % (0.0-2.0); EOSINOPHILS # 0.3 10^3/ul (0.0-0.5); EOSINOPHILS % 2.6 % (0.0-7.0); HEMATOCRIT 24.1 % (42.0-52.0); HEMOGLOBIN 7.3 g/dl (14.0-18.0); LYMPHOCYTES # 0.3 10^3/ul (0.8-2.9); LYMPHOCYTES % 3.2 % (15.0-51.0); MEAN CORPUSCULAR HEMOGLOBIN 28.1 pg (29.0-33.0); MEAN CORPUSCULAR HGB CONC 30.3 g/dl (32.0-37.0); MEAN CORPUSCULAR VOLUME 92.7 fl (82.0-101.0); MEAN PLATELET VOLUME 10.2 fl (7.4-10.4); MONOCYTE # 1.1 10^3/ul (0.3-0.9); MONOCYTES % 10.4 % (0.0-11.0); NEUTROPHIL # 8.7 10^3/ul (1.6-7.5); NEUTROPHILS % 81.3 % (39.0-77.0); NUCLEATED RED BLOOD CELLS # 0.1 10^3/ul (0.0-0.0); NUCLEATED RED BLOOD CELLS% 0.8 /100WBC (0.0-0.0); PLATELET COUNT 301 10^3/UL (140-415); POSITIVE DIFF @See below; RED CELL DISTRIBUTION WIDTH 19.9 % (11.5-14.5)
[2018-05-12] MEDS: EPOETIN 10000 UNITS/ML (NON ESRD/NON ONCOLOGY) SC (18:07)
[2018-05-12] MEDS: MONTELUKAST 10 MG TAB PO (21:27)
[2018-05-12] MEDS: TAMSULOSIN (SR) 0.4 MG CAP PO (21:28)
[2018-05-12] MEDS: ATORVASTATIN 20 MG TAB PO (21:28)
[2018-05-13 06:02] LABS: ADD MAN DIFF? NO
[2018-05-13 06:07] LABS: ABNORMAL IP MESSAGE 1; BASOPHILS % 0.1 % (0.0-2.0); EOSINOPHILS # 0.8 10^3/ul (0.0-0.5); EOSINOPHILS % 6.9 % (0.0-7.0); HEMATOCRIT 23.2 % (42.0-52.0); LYMPHOCYTES # 0.4 10^3/ul (0.8-2.9); LYMPHOCYTES % 3.9 % (15.0-51.0); MEAN CORPUSCULAR HEMOGLOBIN 27.8 pg (29.0-33.0); MEAN CORPUSCULAR HGB CONC 30.2 g/dl (32.0-37.0); MEAN CORPUSCULAR VOLUME 92.1 fl (82.0-101.0); MEAN PLATELET VOLUME 9.5 fl (7.4-10.4); MONOCYTES % 9.3 % (0.0-11.0); NEUTROPHIL # 8.6 10^3/ul (1.6-7.5); NEUTROPHILS % 77.4 % (39.0-77.0); NUCLEATED RED BLOOD CELLS% 0.2 /100WBC (0.0-0.0); PLATELET COUNT 291 10^3/UL (140-415); POSITIVE DIFF @See below; RED BLOOD COUNT 2.52 10^6/ul (4.70-6.10); RED CELL DISTRIBUTION WIDTH 20.2 % (11.5-14.5)
[2018-05-13 06:07] LABS: WHITE BLOOD COUNT 11.1 10^3/ul (4.8-10.8)
[2018-05-13] MEDS: FUROSEMIDE 40 MG TAB PO ×2 (06:32→18:48)
[2018-05-13 06:50] LABS: ANION GAP 16 (8-16); BLOOD UREA NITROGEN 55 mg/dl (7-20); CARBON DIOXIDE 24 mmol/L (21-31); CHLORIDE 104 mmol/L (97-110); GLUCOSE 99 mg/dl (70-220); POTASSIUM 3.8 mmol/L (3.5-5.1); SODIUM 140 mmol/L (135-144)
[2018-05-13 06:56] LABS: CALCIUM 8.3 mg/dl (8.4-10.2); PHOSPHORUS 4.4 mg/dl (2.5-4.9)
[2018-05-13 07:28] LABS: MAGNESIUM 2.4 mg/dl (1.7-2.5)
[2018-05-13] MEDS: LORATADINE 10 MG TAB PO (08:39)
[2018-05-13] MEDS: MULTIVITAMINS/MINERALS TAB PO (08:39)
[2018-05-13] MEDS: ASCORBIC ACID 500 MG TAB PO (08:40)
[2018-05-13] MEDS: FAMOTIDINE 20 MG TAB PO (08:40)
[2018-05-13] MEDS: FINASTERIDE 5 MG TAB PO (08:40)
[2018-05-13] MEDS: AMLODIPINE 5 MG TAB PO ×2 (08:40→21:06)
[2018-05-13] MEDS: TRIAMCINOLONE ACET 0.025% 15 GM CR TOP ×2 (08:41→21:07)
[2018-05-13] MEDS: FLUTICASONE/VILANTEROL 100-25 INH (08:42)
[2018-05-13] MEDS: POTASSIUM CHLORIDE (SR) 10 MEQ TAB PO (08:52)
[2018-05-13] MEDS: SOD CHLORIDE 0.9% 250 ML IV* (11:11)
[2018-05-13] MEDS: FERROUS SULFATE (EC) 325 MG TAB PO ×2 (13:33→21:05)
[2018-05-13 13:52] LABS: IMMEDIATE SPIN CROSSMATCH 1 1
[2018-05-13 20:04] LABS: RETICULOCYTE COUNT # 0.129 X10^6 (0.020-0.110); RETICULOCYTE COUNT % 4.4 % (0.5-1.5)
[2018-05-13 20:04] LABS: RETICULOCYTE RBC 2.92
[2018-05-13 20:30] LABS: LACTATE DEHYDROGENASE 503 IU/L (313-618)
[2018-05-13 20:31] LABS: IRON 46 ug/dl (35-150)
[2018-05-13 20:39] LABS: IMMUNOGLOBULIN A 150 mg/dl (70-400); IMMUNOGLOBULIN G 1080 mg/dl (700-1600); IMMUNOGLOBULIN M 94 mg/dl (40-230)
[2018-05-13 20:42] LABS: % IRON SATURATION 22 % SAT (22-52); TOTAL IRON BINDING CAPACITY 206 ug/dl (241-421)
[2018-05-13] MEDS: MONTELUKAST 10 MG TAB PO (21:05)
[2018-05-13] MEDS: ATORVASTATIN 20 MG TAB PO (21:05)
[2018-05-13] MEDS: TAMSULOSIN (SR) 0.4 MG CAP PO (21:05)
[2018-05-13 21:09] LABS: ERYTHROCYTE SEDIMENTATION RATE 50 mm/Hr (0-20)
[2018-05-13 21:18] LABS: CARCINOEMBRYONIC ANTIGEN 2.9 ng/ml (0.0-5.0)
[2018-05-14] MEDS: FUROSEMIDE 40 MG TAB PO ×2 (05:38→18:34)
[2018-05-14 06:29] LABS: ADD MAN DIFF? NO
[2018-05-14 06:37] LABS: WHITE BLOOD COUNT 10.1 10^3/ul (4.8-10.8)
[2018-05-14 06:38] LABS: ABNORMAL IP MESSAGE 1; BASOPHILS % 0.1 % (0.0-2.0); EOSINOPHILS # 0.5 10^3/ul (0.0-0.5); EOSINOPHILS % 4.9 % (0.0-7.0); HEMOGLOBIN 8.2 g/dl (14.0-18.0); LYMPHOCYTES # 0.4 10^3/ul (0.8-2.9); LYMPHOCYTES % 3.9 % (15.0-51.0); MEAN CORPUSCULAR HEMOGLOBIN 27.6 pg (29.0-33.0); MEAN CORPUSCULAR HGB CONC 30.4 g/dl (32.0-37.0); MEAN CORPUSCULAR VOLUME 90.9 fl (82.0-101.0); MEAN PLATELET VOLUME 9.8 fl (7.4-10.4); MONOCYTE # 0.9 10^3/ul (0.3-0.9); MONOCYTES % 8.7 % (0.0-11.0); NEUTROPHIL # 8.1 10^3/ul (1.6-7.5); NEUTROPHILS % 80.3 % (39.0-77.0); NUCLEATED RED BLOOD CELLS% 0.3 /100WBC (0.0-0.0); PLATELET COUNT 294 10^3/UL (140-415); POSITIVE DIFF @See below; RED BLOOD COUNT 2.97 10^6/ul (4.70-6.10); RED CELL DISTRIBUTION WIDTH 20.6 % (11.5-14.5)
[2018-05-14 07:12] LABS: OCCULT BLOOD STOOL NEGATIVE (NEGATIVE)
[2018-05-14 07:12] LABS: ANION GAP 18 (8-16); BLOOD UREA NITROGEN 57 mg/dl (7-20); CALCIUM 8.3 mg/dl (8.4-10.2); CARBON DIOXIDE 22 mmol/L (21-31); CHLORIDE 104 mmol/L (97-110); CREATININE 2.19 mg/dl (0.61-1.24); GLUCOSE 101 mg/dl (70-220); MAGNESIUM 2.3 mg/dl (1.7-2.5); PHOSPHORUS 4.7 mg/dl (2.5-4.9); POTASSIUM 3.8 mmol/L (3.5-5.1); SODIUM 140 mmol/L (135-144)
[2018-05-14] MEDS: FAMOTIDINE 20 MG TAB PO (07:57)
[2018-05-14] MEDS: LORATADINE 10 MG TAB PO (07:57)
[2018-05-14] MEDS: MULTIVITAMINS/MINERALS TAB PO (07:58)
[2018-05-14] MEDS: FINASTERIDE 5 MG TAB PO (07:58)
[2018-05-14] MEDS: AMLODIPINE 5 MG TAB PO ×2 (07:59→21:32)
[2018-05-14] MEDS: FERROUS SULFATE (EC) 325 MG TAB PO (08:02)
[2018-05-14] MEDS: TRIAMCINOLONE ACET 0.025% 15 GM CR TOP ×2 (08:03→21:34)
[2018-05-14] MEDS: FLUTICASONE/VILANTEROL 100-25 INH (08:03)
[2018-05-14] MEDS: ASCORBIC ACID 500 MG TAB PO (08:20)
[2018-05-14 09:53] LABS: PROTEIN/CREAT RATIO 0.41 RATIO
[2018-05-14] MEDS: EPOETIN 10000 UNITS/ML (NON ESRD/NON ONCOLOGY) SC (17:00)
[2018-05-14] MEDS: SOD FERRIC GLUC COMPLX 125 MG in SOD CHLORIDE 0.9% 100 ML IVPB (18:35)
[2018-05-14] MEDS: TAMSULOSIN (SR) 0.4 MG CAP PO (21:31)
[2018-05-14] MEDS: MONTELUKAST 10 MG TAB PO (21:31)
[2018-05-14] MEDS: ATORVASTATIN 20 MG TAB PO (21:31)
[2018-05-15] MEDS: ALBUTEROL/IPRATROPIUM (NEB) 3 ML AMP HHN (01:59)
[2018-05-15] MEDS: FUROSEMIDE 40 MG TAB PO ×2 (05:27→18:10)
[2018-05-15 06:13] LABS: ADD MAN DIFF? NO
[2018-05-15 06:50] LABS: ANION GAP 16 (8-16); BLOOD UREA NITROGEN 58 mg/dl (7-20); CALCIUM 8.5 mg/dl (8.4-10.2); CARBON DIOXIDE 19 mmol/L (21-31); CHLORIDE 109 mmol/L (97-110); CREATININE 2.21 mg/dl (0.61-1.24); GLUCOSE 99 mg/dl (70-220); POTASSIUM 3.9 mmol/L (3.5-5.1); SODIUM 140 mmol/L (135-144)
[2018-05-15 08:57] LABS: ABNORMAL IP MESSAGE 1; BASOPHILS % 0.1 % (0.0-2.0); EOSINOPHILS # 0.3 10^3/ul (0.0-0.5); HEMATOCRIT 26.8 % (42.0-52.0); HEMOGLOBIN 8.3 g/dl (14.0-18.0); LYMPHOCYTES # 0.4 10^3/ul (0.8-2.9); LYMPHOCYTES % 4.4 % (15.0-51.0); MEAN CORPUSCULAR VOLUME 90.5 fl (82.0-101.0); MEAN PLATELET VOLUME 9.5 fl (7.4-10.4); MONOCYTE # 0.9 10^3/ul (0.3-0.9); MONOCYTES % 10.7 % (0.0-11.0); NEUTROPHIL # 6.6 10^3/ul (1.6-7.5); NEUTROPHILS % 77.7 % (39.0-77.0); NUCLEATED RED BLOOD CELLS% 0.5 /100WBC (0.0-0.0); PLATELET COUNT 303 10^3/UL (140-415); POSITIVE DIFF @See below; RED BLOOD COUNT 2.96 10^6/ul (4.70-6.10)
[2018-05-15 08:57] LABS: WHITE BLOOD COUNT 8.4 10^3/ul (4.8-10.8)
[2018-05-15] MEDS: MULTIVITAMINS/MINERALS TAB PO (09:28)
[2018-05-15] MEDS: FINASTERIDE 5 MG TAB PO (09:28)
[2018-05-15] MEDS: ASCORBIC ACID 500 MG TAB PO (09:28)
[2018-05-15] MEDS: LORATADINE 10 MG TAB PO (09:29)
[2018-05-15] MEDS: FAMOTIDINE 20 MG TAB PO (09:29)
[2018-05-15] MEDS: AMLODIPINE 5 MG TAB PO ×2 (09:32→21:10)
[2018-05-15] MEDS: FLUTICASONE/VILANTEROL 100-25 INH (09:33)
[2018-05-15] MEDS: TRIAMCINOLONE ACET 0.025% 15 GM CR TOP ×2 (09:33→21:12)
[2018-05-15 15:12] LABS: INR 1.29; PROTIME 16.3 Sec (11.9-14.9); PT RATIO 1.3
[2018-05-15] MEDS: SOD FERRIC GLUC COMPLX 125 MG in SOD CHLORIDE 0.9% 100 ML IVPB (18:07)
[2018-05-15] MEDS: WARFARIN 5 MG TAB PO (18:08)
[2018-05-15] MEDS: TAMSULOSIN (SR) 0.4 MG CAP PO (21:10)
[2018-05-15] MEDS: MONTELUKAST 10 MG TAB PO (21:10)
[2018-05-15] MEDS: ATORVASTATIN 20 MG TAB PO (21:10)
[2018-05-16 04:21] LABS: PROTEIN, TOTAL 5.8 g/dL (6.1-8.1)
[2018-05-16] MEDS: ALBUTEROL/IPRATROPIUM (NEB) 3 ML AMP HHN (05:07)
[2018-05-16] MEDS: FUROSEMIDE 40 MG TAB PO ×2 (05:34→17:55)
[2018-05-16 06:18] LABS: INR 1.39; PROTIME 17.3 Sec (11.9-14.9); PT RATIO 1.4
[2018-05-16] MEDS: ASCORBIC ACID 500 MG TAB PO (08:55)
[2018-05-16] MEDS: MULTIVITAMINS/MINERALS TAB PO (08:55)
[2018-05-16] MEDS: FINASTERIDE 5 MG TAB PO (08:55)
[2018-05-16] MEDS: LORATADINE 10 MG TAB PO (08:55)
[2018-05-16] MEDS: AMLODIPINE 5 MG TAB PO ×2 (08:55→22:07)
[2018-05-16] MEDS: FAMOTIDINE 20 MG TAB PO (08:56)
[2018-05-16] MEDS: FLUTICASONE/VILANTEROL 100-25 INH (08:57)
[2018-05-16] MEDS: TRIAMCINOLONE ACET 0.025% 15 GM CR TOP ×2 (08:57→22:08)
[2018-05-16 14:56] LABS: ALBUMIN 2.8 g/dL (3.8-4.8); ALPHA-1-GLOBULINS 0.5 g/dL (0.2-0.3); ALPHA-2-GLOBULINS 0.9 g/dL (0.5-0.9); BETA 2 GLOBULINS 0.3 g/dL (0.2-0.5); BETA GLOBULINS 0.3 g/dL (0.4-0.6); GAMMA GLOBULINS 1.1 g/dL (0.8-1.7); HAPTOGLOBIN 319 mg/dL (43-212)
[2018-05-16] MEDS: SOD FERRIC GLUC COMPLX 125 MG in SOD CHLORIDE 0.9% 100 ML IVPB (17:52)
[2018-05-16] MEDS: EPOETIN 10000 UNITS/ML (NON ESRD/NON ONCOLOGY) SC (17:52)
[2018-05-16] MEDS: WARFARIN 5 MG TAB PO (17:52)
[2018-05-16 20:54] LABS: ERYTHROPOIETIN 191.2 mIU/mL (2.6-18.5)
[2018-05-16] MEDS: MONTELUKAST 10 MG TAB PO (22:06)
[2018-05-16] MEDS: ATORVASTATIN 20 MG TAB PO (22:06)
[2018-05-16] MEDS: TAMSULOSIN (SR) 0.4 MG CAP PO (22:06)
[2018-05-17] MEDS: FUROSEMIDE 40 MG TAB PO ×2 (06:03→18:06)
[2018-05-17 07:24] LABS: ANION GAP 15 (8-16); BLOOD UREA NITROGEN 58 mg/dl (7-20); CALCIUM 8.4 mg/dl (8.4-10.2); CARBON DIOXIDE 23 mmol/L (21-31); CHLORIDE 107 mmol/L (97-110); CREATININE 2.24 mg/dl (0.61-1.24); GLUCOSE 118 mg/dl (70-220); POTASSIUM 3.2 mmol/L (3.5-5.1); SODIUM 142 mmol/L (135-144)
[2018-05-17] MEDS: ASCORBIC ACID 500 MG TAB PO (08:44)
[2018-05-17] MEDS: TRIAMCINOLONE ACET 0.025% 15 GM CR TOP ×2 (08:44→21:16)
[2018-05-17] MEDS: AMLODIPINE 5 MG TAB PO ×2 (08:44→21:15)
[2018-05-17] MEDS: MULTIVITAMINS/MINERALS TAB PO (08:44)
[2018-05-17] MEDS: LORATADINE 10 MG TAB PO (08:44)
[2018-05-17] MEDS: FINASTERIDE 5 MG TAB PO (08:44)
[2018-05-17] MEDS: FLUTICASONE/VILANTEROL 100-25 INH (08:44)
[2018-05-17] MEDS: FAMOTIDINE 20 MG TAB PO (08:44)
[2018-05-17] MEDS: POTASSIUM CHLORIDE (SR) 20 MEQ TAB PO (12:07)
[2018-05-17] MEDS: WARFARIN 5 MG TAB PO (16:35)
[2018-05-17] MEDS: SOD FERRIC GLUC COMPLX 125 MG in SOD CHLORIDE 0.9% 100 ML IVPB (16:35)
[2018-05-17] MEDS: ATORVASTATIN 20 MG TAB PO (21:14)
[2018-05-17] MEDS: TAMSULOSIN (SR) 0.4 MG CAP PO (21:14)
[2018-05-17] MEDS: MONTELUKAST 10 MG TAB PO (21:14)
[2018-05-18] MEDS: FUROSEMIDE 40 MG TAB PO ×2 (05:49→18:12)
[2018-05-18 06:10] LABS: ADD MAN DIFF? NO
[2018-05-18 06:18] LABS: ABNORMAL IP MESSAGE 1; BASOPHILS % 0.2 % (0.0-2.0); EOSINOPHILS # 0.4 10^3/ul (0.0-0.5); EOSINOPHILS % 3.2 % (0.0-7.0); HEMATOCRIT 29.7 % (42.0-52.0); HEMOGLOBIN 8.9 g/dl (14.0-18.0); LYMPHOCYTES # 0.4 10^3/ul (0.8-2.9); LYMPHOCYTES % 3.2 % (15.0-51.0); MEAN CORPUSCULAR HEMOGLOBIN 27.5 pg (29.0-33.0); MEAN CORPUSCULAR VOLUME 91.7 fl (82.0-101.0); MEAN PLATELET VOLUME 9.3 fl (7.4-10.4); MONOCYTES % 8.7 % (0.0-11.0); NEUTROPHIL # 9.4 10^3/ul (1.6-7.5); NEUTROPHILS % 81.7 % (39.0-77.0); NUCLEATED RED BLOOD CELLS # 0.1 10^3/ul (0.0-0.0); NUCLEATED RED BLOOD CELLS% 0.7 /100WBC (0.0-0.0); PLATELET COUNT 328 10^3/UL (140-415); POSITIVE DIFF @See below; RED BLOOD COUNT 3.24 10^6/ul (4.70-6.10); RED CELL DISTRIBUTION WIDTH 22.9 % (11.5-14.5)
[2018-05-18 06:18] LABS: WHITE BLOOD COUNT 11.5 10^3/ul (4.8-10.8)
[2018-05-18 06:34] LABS: PROTIME 29.4 Sec (11.9-14.9); PT RATIO 2.3
[2018-05-18 07:03] LABS: ALANINE AMINOTRANSFERASE 46 IU/L (13-69); ALBUMIN 2.9 g/dl (3.3-4.9); ALBUMIN/GLOBULIN RATIO 0.93; ALKALINE PHOSPHATASE 84 IU/L (42-121); ANION GAP 12 (8-16); ASPARTATE AMINO TRANSFERASE 29 IU/L (15-46); BILIRUBIN,INDIRECT 0.8 mg/dl (0-1.1); BILIRUBIN,TOTAL 0.8 mg/dl (0.2-1.3); BLOOD UREA NITROGEN 56 mg/dl (7-20); CALCIUM 8.3 mg/dl (8.4-10.2); CARBON DIOXIDE 23 mmol/L (21-31); CHLORIDE 110 mmol/L (97-110); CREATININE 2.25 mg/dl (0.61-1.24); GLUCOSE 107 mg/dl (70-220); MAGNESIUM 2.2 mg/dl (1.7-2.5); PHOSPHORUS 4.5 mg/dl (2.5-4.9); POTASSIUM 3.4 mmol/L (3.5-5.1); SODIUM 142 mmol/L (135-144)
[2018-05-18] MEDS: FINASTERIDE 5 MG TAB PO (09:46)
[2018-05-18] MEDS: LORATADINE 10 MG TAB PO (09:46)
[2018-05-18] MEDS: MULTIVITAMINS/MINERALS TAB PO (09:46)
[2018-05-18] MEDS: ASCORBIC ACID 500 MG TAB PO (09:46)
[2018-05-18] MEDS: TRIAMCINOLONE ACET 0.025% 15 GM CR TOP ×2 (09:47→21:00)
[2018-05-18] MEDS: AMLODIPINE 5 MG TAB PO ×2 (09:47→20:59)
[2018-05-18] MEDS: FAMOTIDINE 20 MG TAB PO (09:47)
[2018-05-18] MEDS: POTASSIUM CHLORIDE (SR) 10 MEQ TAB PO (09:47)
[2018-05-18] MEDS: FLUTICASONE/VILANTEROL 100-25 INH (09:48)
[2018-05-18] MEDS: WARFARIN 5 MG TAB PO (18:12)
[2018-05-18] MEDS: SOD FERRIC GLUC COMPLX 125 MG in SOD CHLORIDE 0.9% 100 ML IVPB (18:12)
[2018-05-18] MEDS: TAMSULOSIN (SR) 0.4 MG CAP PO (20:57)
[2018-05-18] MEDS: MONTELUKAST 10 MG TAB PO (20:57)
[2018-05-18] MEDS: ATORVASTATIN 20 MG TAB PO (20:57)
[2018-05-19] MEDS: FUROSEMIDE 40 MG TAB PO ×2 (06:07→18:12)
[2018-05-19 06:15] LABS: ADD MAN DIFF? NO
[2018-05-19 06:20] LABS: ABNORMAL IP MESSAGE 1; BASOPHILS % 0.2 % (0.0-2.0); EOSINOPHILS # 0.4 10^3/ul (0.0-0.5); EOSINOPHILS % 3.5 % (0.0-7.0); HEMATOCRIT 29.9 % (42.0-52.0); HEMOGLOBIN 8.9 g/dl (14.0-18.0); LYMPHOCYTES # 0.4 10^3/ul (0.8-2.9); LYMPHOCYTES % 3.3 % (15.0-51.0); MEAN CORPUSCULAR HEMOGLOBIN 27.4 pg (29.0-33.0); MEAN CORPUSCULAR HGB CONC 29.8 g/dl (32.0-37.0); MEAN PLATELET VOLUME 9.1 fl (7.4-10.4); MONOCYTE # 0.9 10^3/ul (0.3-0.9); MONOCYTES % 8.6 % (0.0-11.0); NEUTROPHIL # 8.7 10^3/ul (1.6-7.5); NEUTROPHILS % 80.8 % (39.0-77.0); NUCLEATED RED BLOOD CELLS # 0.1 10^3/ul (0.0-0.0); NUCLEATED RED BLOOD CELLS% 0.5 /100WBC (0.0-0.0); PLATELET COUNT 326 10^3/UL (140-415); POSITIVE DIFF @See below; RED BLOOD COUNT 3.25 10^6/ul (4.70-6.10); RED CELL DISTRIBUTION WIDTH 23.8 % (11.5-14.5)
[2018-05-19 06:20] LABS: WHITE BLOOD COUNT 10.8 10^3/ul (4.8-10.8)
[2018-05-19 06:38] LABS: MAGNESIUM 2.1 mg/dl (1.7-2.5)
[2018-05-19 06:42] LABS: ALANINE AMINOTRANSFERASE 31 IU/L (13-69); ALBUMIN 2.9 g/dl (3.3-4.9); ALBUMIN/GLOBULIN RATIO 0.93; ALKALINE PHOSPHATASE 79 IU/L (42-121); ANION GAP 14 (8-16); ASPARTATE AMINO TRANSFERASE 21 IU/L (15-46); BILIRUBIN,INDIRECT 0.7 mg/dl (0-1.1); BILIRUBIN,TOTAL 0.7 mg/dl (0.2-1.3); BLOOD UREA NITROGEN 57 mg/dl (7-20); CALCIUM 8.2 mg/dl (8.4-10.2); CARBON DIOXIDE 23 mmol/L (21-31); CHLORIDE 109 mmol/L (97-110); CREATININE 2.18 mg/dl (0.61-1.24); GLUCOSE 93 mg/dl (70-220); POTASSIUM 3.2 mmol/L (3.5-5.1); SODIUM 143 mmol/L (135-144)
[2018-05-19 06:45] LABS: INR 3.87; PROTIME 39.3 Sec (11.9-14.9); PT RATIO 3.1
[2018-05-19] MEDS: FINASTERIDE 5 MG TAB PO (09:21)
[2018-05-19] MEDS: MULTIVITAMINS/MINERALS TAB PO (09:21)
[2018-05-19] MEDS: ASCORBIC ACID 500 MG TAB PO (09:21)
[2018-05-19] MEDS: LORATADINE 10 MG TAB PO (09:21)
[2018-05-19] MEDS: AMLODIPINE 5 MG TAB PO ×2 (09:22→20:43)
[2018-05-19] MEDS: TRIAMCINOLONE ACET 0.025% 15 GM CR TOP ×2 (09:22→20:44)
[2018-05-19] MEDS: FAMOTIDINE 20 MG TAB PO (09:22)
[2018-05-19] MEDS: FLUTICASONE/VILANTEROL 100-25 INH (09:23)
[2018-05-19] MEDS: POTASSIUM CHLORIDE (SR) 20 MEQ TAB PO (10:32)
[2018-05-19] MEDS: EPOETIN 10000 UNITS/ML (NON ESRD/NON ONCOLOGY) SC (18:11)
[2018-05-19] MEDS: TAMSULOSIN (SR) 0.4 MG CAP PO (20:42)
[2018-05-19] MEDS: ATORVASTATIN 20 MG TAB PO (20:42)
[2018-05-19] MEDS: MONTELUKAST 10 MG TAB PO (20:42)
[2018-05-20] MEDS: FUROSEMIDE 40 MG TAB PO ×2 (06:11→17:23)
[2018-05-20 07:30] LABS: ADD MAN DIFF? NO
[2018-05-20 07:43] LABS: ABNORMAL IP MESSAGE 1; BASOPHILS % 0.2 % (0.0-2.0); EOSINOPHILS # 0.2 10^3/ul (0.0-0.5); EOSINOPHILS % 1.8 % (0.0-7.0); HEMATOCRIT 29.6 % (42.0-52.0); HEMOGLOBIN 8.9 g/dl (14.0-18.0); LYMPHOCYTES # 0.4 10^3/ul (0.8-2.9); LYMPHOCYTES % 3.3 % (15.0-51.0); MEAN CORPUSCULAR HEMOGLOBIN 28.3 pg (29.0-33.0); MEAN CORPUSCULAR HGB CONC 30.1 g/dl (32.0-37.0); MEAN CORPUSCULAR VOLUME 94.3 fl (82.0-101.0); MEAN PLATELET VOLUME 9.2 fl (7.4-10.4); MONOCYTE # 0.9 10^3/ul (0.3-0.9); NEUTROPHIL # 9.3 10^3/ul (1.6-7.5); NEUTROPHILS % 84.2 % (39.0-77.0); NUCLEATED RED BLOOD CELLS # 0.1 10^3/ul (0.0-0.0); NUCLEATED RED BLOOD CELLS% 0.5 /100WBC (0.0-0.0); PLATELET COUNT 317 10^3/UL (140-415); POSITIVE DIFF @See below; RED BLOOD COUNT 3.14 10^6/ul (4.70-6.10); RED CELL DISTRIBUTION WIDTH 23.9 % (11.5-14.5)
[2018-05-20 07:43] LABS: WHITE BLOOD COUNT 11.1 10^3/ul (4.8-10.8)
[2018-05-20 08:05] LABS: ALANINE AMINOTRANSFERASE 38 IU/L (13-69); ALKALINE PHOSPHATASE 88 IU/L (42-121); ANION GAP 13 (8-16); ASPARTATE AMINO TRANSFERASE 32 IU/L (15-46); BILIRUBIN,INDIRECT 0.6 mg/dl (0-1.1); BILIRUBIN,TOTAL 0.6 mg/dl (0.2-1.3); BLOOD UREA NITROGEN 60 mg/dl (7-20); CALCIUM 8.4 mg/dl (8.4-10.2); CARBON DIOXIDE 23 mmol/L (21-31); CHLORIDE 111 mmol/L (97-110); CREATININE 2.24 mg/dl (0.61-1.24); GLUCOSE 105 mg/dl (70-220); MAGNESIUM 2.2 mg/dl (1.7-2.5); PHOSPHORUS 4.1 mg/dl (2.5-4.9); POTASSIUM 3.6 mmol/L (3.5-5.1); SODIUM 143 mmol/L (135-144)
[2018-05-20] MEDS: POTASSIUM CHLORIDE (SR) 10 MEQ TAB PO (08:34)
[2018-05-20] MEDS: FLUTICASONE/VILANTEROL 100-25 INH (08:35)
[2018-05-20] MEDS: CHOLECALCIFEROL 2,000 UNIT CAP PO (08:35)
[2018-05-20] MEDS: MULTIVITAMINS/MINERALS TAB PO (08:37)
[2018-05-20] MEDS: FINASTERIDE 5 MG TAB PO (08:37)
[2018-05-20] MEDS: LORATADINE 10 MG TAB PO (08:37)
[2018-05-20] MEDS: ASCORBIC ACID 500 MG TAB PO (08:37)
[2018-05-20] MEDS: FAMOTIDINE 20 MG TAB PO (08:37)
[2018-05-20] MEDS: AMLODIPINE 5 MG TAB PO ×2 (08:38→21:00)
[2018-05-20] MEDS: TRIAMCINOLONE ACET 0.025% 15 GM CR TOP ×2 (08:39→21:02)
[2018-05-20 08:48] LABS: AADO2 Arterial 86.7 mmHg (7.0-24.0); Allen Test ACCEPTAB; Arterial Blood Gas Oxygen Sat 95.8 mmHG (95.0-100.0); Arterial COHb 0.3 % (0.0-3.0); Arterial HCO3 20.3 mmol/L (22.0-26.0); Arterial MetHb 0.5 % (0.0-1.5); Arterial Total Hemglobin 10.4 g/dl (12.0-18.0); Arterial pCO2 34.1 mmhg (35-45); MODE NASAL CANNULA; Site Right Radial
[2018-05-20 19:46] LABS: IMMUNOGLOBULIN D 4 mg/L (<179)
[2018-05-20] MEDS: ATORVASTATIN 20 MG TAB PO (21:00)
[2018-05-20] MEDS: TAMSULOSIN (SR) 0.4 MG CAP PO (21:00)
[2018-05-20] MEDS: MONTELUKAST 10 MG TAB PO (21:01)
[2018-05-21] MEDS: FUROSEMIDE 40 MG TAB PO (05:18)
[2018-05-21 06:13] LABS: ADD MAN DIFF? NO
[2018-05-21 06:23] LABS: ABNORMAL IP MESSAGE 1; BASOPHILS % 0.2 % (0.0-2.0); EOSINOPHILS # 0.6 10^3/ul (0.0-0.5); EOSINOPHILS % 5.8 % (0.0-7.0); HEMATOCRIT 29.6 % (42.0-52.0); HEMOGLOBIN 8.8 g/dl (14.0-18.0); LYMPHOCYTES # 0.5 10^3/ul (0.8-2.9); LYMPHOCYTES % 4.7 % (15.0-51.0); MEAN CORPUSCULAR HEMOGLOBIN 27.9 pg (29.0-33.0); MEAN CORPUSCULAR HGB CONC 29.7 g/dl (32.0-37.0); MEAN PLATELET VOLUME 9.7 fl (7.4-10.4); MONOCYTE # 0.8 10^3/ul (0.3-0.9); MONOCYTES % 8.1 % (0.0-11.0); NEUTROPHIL # 7.9 10^3/ul (1.6-7.5); NEUTROPHILS % 78.3 % (39.0-77.0); NUCLEATED RED BLOOD CELLS% 0.3 /100WBC (0.0-0.0); PLATELET COUNT 273 10^3/UL (140-415); POSITIVE DIFF @See below; RED BLOOD COUNT 3.15 10^6/ul (4.70-6.10); RED CELL DISTRIBUTION WIDTH 24.1 % (11.5-14.5)
[2018-05-21 06:38] LABS: INR 3.74; PROTIME 38.2 Sec (11.9-14.9)
[2018-05-21 06:59] LABS: CALCIUM 8.2 mg/dl (8.4-10.2); CARBON DIOXIDE 23 mmol/L (21-31); CREATININE 2.34 mg/dl (0.61-1.24); GLUCOSE 94 mg/dl (70-220); MAGNESIUM 2.3 mg/dl (1.7-2.5); POTASSIUM 3.8 mmol/L (3.5-5.1); SODIUM 142 mmol/L (135-144)
[2018-05-21 07:14] LABS: PHOSPHORUS 3.9 mg/dl (2.5-4.9)
[2018-05-21 08:17] LABS: ANION GAP 11 (8-16); BLOOD UREA NITROGEN 62 mg/dl (7-20); CHLORIDE 112 mmol/L (97-110)
[2018-05-21] MEDS: MULTIVITAMINS/MINERALS TAB PO (08:43)
[2018-05-21] MEDS: FINASTERIDE 5 MG TAB PO (08:43)
[2018-05-21] MEDS: CHOLECALCIFEROL 2,000 UNIT CAP PO (08:43)
[2018-05-21] MEDS: ASCORBIC ACID 500 MG TAB PO (08:43)
[2018-05-21] MEDS: FAMOTIDINE 20 MG TAB PO (08:43)
[2018-05-21] MEDS: TRIAMCINOLONE ACET 0.025% 15 GM CR TOP ×2 (08:44→21:20)
[2018-05-21] MEDS: FLUTICASONE/VILANTEROL 100-25 INH (08:44)
[2018-05-21] MEDS: LORATADINE 10 MG TAB PO (08:44)
[2018-05-21] MEDS: AMLODIPINE 5 MG TAB PO ×2 (08:44→21:20)
[2018-05-21] MEDS: LIDOCAINE 1% (MPF) 30 ML INJ INJ (11:55)
[2018-05-21] MEDS: EPOETIN 10000 UNITS/ML (NON ESRD/NON ONCOLOGY) SC (19:04)
[2018-05-21] MEDS: MONTELUKAST 10 MG TAB PO (21:19)
[2018-05-21] MEDS: ATORVASTATIN 20 MG TAB PO (21:19)
[2018-05-21] MEDS: TAMSULOSIN (SR) 0.4 MG CAP PO (21:19)
[2018-05-22 06:14] LABS: ADD MAN DIFF? NO
[2018-05-22 06:24] LABS: WHITE BLOOD COUNT 11.8 10^3/ul (4.8-10.8)
[2018-05-22 06:24] LABS: ABNORMAL IP MESSAGE 1; BASOPHILS % 0.2 % (0.0-2.0); EOSINOPHILS # 0.6 10^3/ul (0.0-0.5); EOSINOPHILS % 5.1 % (0.0-7.0); HEMATOCRIT 29.3 % (42.0-52.0); HEMOGLOBIN 8.8 g/dl (14.0-18.0); LYMPHOCYTES # 0.4 10^3/ul (0.8-2.9); LYMPHOCYTES % 3.3 % (15.0-51.0); MEAN CORPUSCULAR HEMOGLOBIN 28.4 pg (29.0-33.0); MEAN CORPUSCULAR VOLUME 94.5 fl (82.0-101.0); MEAN PLATELET VOLUME 9.1 fl (7.4-10.4); MONOCYTE # 0.9 10^3/ul (0.3-0.9); MONOCYTES % 7.3 % (0.0-11.0); NEUTROPHIL # 9.7 10^3/ul (1.6-7.5); NEUTROPHILS % 81.9 % (39.0-77.0); NUCLEATED RED BLOOD CELLS% 0.2 /100WBC (0.0-0.0); PLATELET COUNT 270 10^3/UL (140-415); POSITIVE DIFF @See below; RED CELL DISTRIBUTION WIDTH 24.3 % (11.5-14.5)
[2018-05-22 06:55] LABS: ANION GAP 12 (8-16); BLOOD UREA NITROGEN 63 mg/dl (7-20); CALCIUM 7.9 mg/dl (8.4-10.2); CARBON DIOXIDE 24 mmol/L (21-31); CHLORIDE 110 mmol/L (97-110); CREATININE 2.48 mg/dl (0.61-1.24); GLUCOSE 103 mg/dl (70-220); MAGNESIUM 2.3 mg/dl (1.7-2.5); PHOSPHORUS 3.9 mg/dl (2.5-4.9); POTASSIUM 3.9 mmol/L (3.5-5.1); SODIUM 142 mmol/L (135-144)
[2018-05-22] MEDS: FAMOTIDINE 20 MG TAB PO (08:19)
[2018-05-22] MEDS: CHOLECALCIFEROL 2,000 UNIT CAP PO (08:19)
[2018-05-22] MEDS: ASCORBIC ACID 500 MG TAB PO (08:19)
[2018-05-22] MEDS: LORATADINE 10 MG TAB PO (08:22)
[2018-05-22] MEDS: MULTIVITAMINS/MINERALS TAB PO (08:22)
[2018-05-22] MEDS: FINASTERIDE 5 MG TAB PO (08:22)
[2018-05-22] MEDS: AMLODIPINE 5 MG TAB PO ×2 (08:22→20:27)
[2018-05-22] MEDS: TRIAMCINOLONE ACET 0.025% 15 GM CR TOP ×2 (08:23→20:23)
[2018-05-22] MEDS: FLUTICASONE/VILANTEROL 100-25 INH (08:23)
[2018-05-22] MEDS: ATORVASTATIN 20 MG TAB PO (20:23)
[2018-05-22] MEDS: TAMSULOSIN (SR) 0.4 MG CAP PO (20:24)
[2018-05-22] MEDS: MONTELUKAST 10 MG TAB PO (20:28)
[2018-05-23 06:17] LABS: ADD MAN DIFF? NO
[2018-05-23 06:21] LABS: WHITE BLOOD COUNT 11.8 10^3/ul (4.8-10.8)
[2018-05-23 06:21] LABS: ABNORMAL IP MESSAGE 1; BASOPHILS % 0.3 % (0.0-2.0); EOSINOPHILS # 0.3 10^3/ul (0.0-0.5); EOSINOPHILS % 2.6 % (0.0-7.0); HEMATOCRIT 29.8 % (42.0-52.0); HEMOGLOBIN 8.9 g/dl (14.0-18.0); LYMPHOCYTES # 0.3 10^3/ul (0.8-2.9); LYMPHOCYTES % 2.7 % (15.0-51.0); MEAN CORPUSCULAR HEMOGLOBIN 28.6 pg (29.0-33.0); MEAN CORPUSCULAR HGB CONC 29.9 g/dl (32.0-37.0); MEAN CORPUSCULAR VOLUME 95.8 fl (82.0-101.0); MEAN PLATELET VOLUME 9.5 fl (7.4-10.4); MONOCYTE # 0.9 10^3/ul (0.3-0.9); MONOCYTES % 7.4 % (0.0-11.0); NEUTROPHILS % 84.4 % (39.0-77.0); PLATELET COUNT 278 10^3/UL (140-415); POSITIVE DIFF @See below; RED BLOOD COUNT 3.11 10^6/ul (4.70-6.10); RED CELL DISTRIBUTION WIDTH 24.5 % (11.5-14.5)
[2018-05-23 07:25] LABS: ANION GAP 16 (8-16); BLOOD UREA NITROGEN 64 mg/dl (7-20); CALCIUM 8.2 mg/dl (8.4-10.2); CARBON DIOXIDE 23 mmol/L (21-31); CHLORIDE 107 mmol/L (97-110); CREATININE 2.45 mg/dl (0.61-1.24); GLUCOSE 157 mg/dl (70-220); POTASSIUM 4.3 mmol/L (3.5-5.1); SODIUM 142 mmol/L (135-144)
[2018-05-23] MEDS: FINASTERIDE 5 MG TAB PO (08:34)
[2018-05-23] MEDS: MULTIVITAMINS/MINERALS TAB PO (08:34)
[2018-05-23] MEDS: FAMOTIDINE 20 MG TAB PO (08:34)
[2018-05-23] MEDS: CHOLECALCIFEROL 2,000 UNIT CAP PO (08:34)
[2018-05-23] MEDS: AMLODIPINE 5 MG TAB PO ×2 (08:35→20:35)
[2018-05-23] MEDS: FLUTICASONE/VILANTEROL 100-25 INH (08:35)
[2018-05-23] MEDS: ASCORBIC ACID 500 MG TAB PO (08:35)
[2018-05-23] MEDS: LORATADINE 10 MG TAB PO (08:35)
[2018-05-23] MEDS: TRIAMCINOLONE ACET 0.025% 15 GM CR TOP ×2 (08:38→20:36)
[2018-05-23 09:36] LABS: ADD UMIC NO; UR ASCORBIC ACID 40 mg/dL (NEGATIVE); UR BILIRUBIN (Dip) NEGATIVE (NEGATIVE); UR BLOOD (Dip) NEGATIVE (NEGATIVE); UR CLARITY CLEAR (CLEAR); UR COLOR YELLOW (YELLOW); UR GLUCOSE (Dip) NEGATIVE (NEGATIVE); UR KETONES (Dip) NEGATIVE (NEGATIVE); UR LEUKOCYTE ESTERASE (Dip) NEGATIVE Leu/ul (NEGATIVE); UR NITRITE (Dip) NEGATIVE (NEGATIVE); UR SPECIFIC GRAVITY (Dip) 1.013 (1.003-1.030); UR TOTAL PROTEIN (Dip) NEGATIVE (NEGATIVE); UR UROBILINOGEN (Dip) NEGATIVE (NEGATIVE)
[2018-05-23 10:36] LABS: PROTIME 35.4 Sec (11.9-14.9); PT RATIO 2.8
[2018-05-23] MEDS: HYDROCODONE/APAP (5/325) TAB PO (11:44)
[2018-05-23] MEDS: SOD CHLORIDE 0.9% 1,000 ML IV (11:44)
[2018-05-23] MEDS: EPOETIN 10000 UNITS/ML (NON ESRD/NON ONCOLOGY) SC (17:53)
[2018-05-23] MEDS: ATORVASTATIN 20 MG TAB PO (20:35)
[2018-05-23] MEDS: TAMSULOSIN (SR) 0.4 MG CAP PO (20:36)
[2018-05-23] MEDS: MONTELUKAST 10 MG TAB PO (20:36)
[2018-05-24] MEDS: ACETAMINOPHEN 325 MG TAB PO (05:07)
[2018-05-24] MEDS: SOD CHLORIDE 0.9% 1,000 ML IV (05:08)
[2018-05-24 06:04] LABS: ADD MAN DIFF? NO
[2018-05-24 06:15] LABS: ABNORMAL IP MESSAGE 1; BASOPHILS % 0.3 % (0.0-2.0); EOSINOPHILS # 0.5 10^3/ul (0.0-0.5); EOSINOPHILS % 4.8 % (0.0-7.0); HEMATOCRIT 28.4 % (42.0-52.0); HEMOGLOBIN 8.5 g/dl (14.0-18.0); LYMPHOCYTES # 0.4 10^3/ul (0.8-2.9); LYMPHOCYTES % 3.7 % (15.0-51.0); MEAN CORPUSCULAR HEMOGLOBIN 28.8 pg (29.0-33.0); MEAN CORPUSCULAR HGB CONC 29.9 g/dl (32.0-37.0); MEAN CORPUSCULAR VOLUME 96.3 fl (82.0-101.0); MEAN PLATELET VOLUME 9.3 fl (7.4-10.4); MONOCYTE # 0.7 10^3/ul (0.3-0.9); MONOCYTES % 7.5 % (0.0-11.0); NEUTROPHILS % 81.3 % (39.0-77.0); PLATELET COUNT 241 10^3/UL (140-415); POSITIVE DIFF @See below; RED BLOOD COUNT 2.95 10^6/ul (4.70-6.10); RED CELL DISTRIBUTION WIDTH 24.6 % (11.5-14.5)
[2018-05-24 06:15] LABS: WHITE BLOOD COUNT 9.9 10^3/ul (4.8-10.8)
[2018-05-24 06:26] LABS: ANION GAP 14 (8-16); BLOOD UREA NITROGEN 67 mg/dl (7-20); CALCIUM 7.9 mg/dl (8.4-10.2); CARBON DIOXIDE 24 mmol/L (21-31); CHLORIDE 109 mmol/L (97-110); CREATININE 2.48 mg/dl (0.61-1.24); GLUCOSE 102 mg/dl (70-220); MAGNESIUM 2.5 mg/dl (1.7-2.5); PHOSPHORUS 4.1 mg/dl (2.5-4.9); POTASSIUM 4.7 mmol/L (3.5-5.1); SODIUM 142 mmol/L (135-144)
[2018-05-24 07:37] LABS: SODIUM,URINE RANDOM < 13 mmol/L (30-90)
[2018-05-24 07:38] LABS: CREATININE,URINE RANDOM 98.75 mg/dl (20-370); PROTEIN/CREAT RATIO 0.16 RATIO
[2018-05-24] MEDS: FLUTICASONE/VILANTEROL 100-25 INH (08:20)
[2018-05-24] MEDS: ASCORBIC ACID 500 MG TAB PO (08:21)
[2018-05-24] MEDS: FAMOTIDINE 20 MG TAB PO (08:21)
[2018-05-24] MEDS: LORATADINE 10 MG TAB PO (08:21)
[2018-05-24] MEDS: FINASTERIDE 5 MG TAB PO (08:21)
[2018-05-24] MEDS: AMLODIPINE 5 MG TAB PO ×2 (08:21→20:16)
[2018-05-24] MEDS: CHOLECALCIFEROL 2,000 UNIT CAP PO (08:22)
[2018-05-24] MEDS: MULTIVITAMINS/MINERALS TAB PO (08:22)
[2018-05-24] MEDS: TRIAMCINOLONE ACET 0.025% 15 GM CR TOP ×2 (08:23→20:14)
[2018-05-24] MEDS: TESTOSTERONE CYPIONATE 200 MG/ML INJ IM (16:44)
[2018-05-24] MEDS: TAMSULOSIN (SR) 0.4 MG CAP PO (20:14)
[2018-05-24] MEDS: ATORVASTATIN 20 MG TAB PO (20:14)
[2018-05-24] MEDS: MONTELUKAST 10 MG TAB PO (20:14)
[2018-05-25] MEDS: HYDROCODONE/APAP (5/325) TAB PO ×2 (00:38→20:39)
[2018-05-25] MEDS: SOD CHLORIDE 0.9% 1,000 ML IV ×2 (00:38→20:39)
[2018-05-25 06:54] LABS: INR 3.96; PT RATIO 3.1
[2018-05-25] MEDS: MULTIVITAMINS/MINERALS TAB PO (09:02)
[2018-05-25] MEDS: FAMOTIDINE 20 MG TAB PO (09:03)
[2018-05-25] MEDS: AMLODIPINE 5 MG TAB PO ×2 (09:03→20:44)
[2018-05-25] MEDS: CHOLECALCIFEROL 2,000 UNIT CAP PO (09:03)
[2018-05-25] MEDS: FINASTERIDE 5 MG TAB PO (09:03)
[2018-05-25] MEDS: ASCORBIC ACID 500 MG TAB PO (09:04)
[2018-05-25] MEDS: LORATADINE 10 MG TAB PO (09:04)
[2018-05-25] MEDS: TRIAMCINOLONE ACET 0.025% 15 GM CR TOP ×2 (09:04→20:43)
[2018-05-25] MEDS: FLUTICASONE/VILANTEROL 100-25 INH (09:04)
[2018-05-25] MEDS: TAMSULOSIN (SR) 0.4 MG CAP PO (20:44)
[2018-05-25] MEDS: ATORVASTATIN 20 MG TAB PO (20:44)
[2018-05-25] MEDS: MONTELUKAST 10 MG TAB PO (20:44)
[2018-05-26] MEDS: ALBUTEROL/IPRATROPIUM (NEB) 3 ML AMP HHN (05:03)
[2018-05-26 05:55] LABS: ADD MAN DIFF? NO
[2018-05-26 06:07] LABS: WHITE BLOOD COUNT 8.1 10^3/ul (4.8-10.8)
[2018-05-26 06:07] LABS: ABNORMAL IP MESSAGE 1; BASOPHILS % 0.2 % (0.0-2.0); EOSINOPHILS # 0.5 10^3/ul (0.0-0.5); HEMATOCRIT 29.3 % (42.0-52.0); HEMOGLOBIN 8.4 g/dl (14.0-18.0); LYMPHOCYTES # 0.3 10^3/ul (0.8-2.9); LYMPHOCYTES % 4.1 % (15.0-51.0); MEAN CORPUSCULAR HEMOGLOBIN 28.2 pg (29.0-33.0); MEAN CORPUSCULAR HGB CONC 28.7 g/dl (32.0-37.0); MEAN CORPUSCULAR VOLUME 98.3 fl (82.0-101.0); MEAN PLATELET VOLUME 9.6 fl (7.4-10.4); MONOCYTE # 0.7 10^3/ul (0.3-0.9); MONOCYTES % 8.7 % (0.0-11.0); NEUTROPHIL # 6.3 10^3/ul (1.6-7.5); NEUTROPHILS % 78.8 % (39.0-77.0); PLATELET COUNT 236 10^3/UL (140-415); POSITIVE DIFF @See below; RED BLOOD COUNT 2.98 10^6/ul (4.70-6.10); RED CELL DISTRIBUTION WIDTH 25.4 % (11.5-14.5)
[2018-05-26 06:37] LABS: ALANINE AMINOTRANSFERASE 36 IU/L (13-69); ALBUMIN/GLOBULIN RATIO 0.96; ALKALINE PHOSPHATASE 78 IU/L (42-121); ANION GAP 12 (8-16); ASPARTATE AMINO TRANSFERASE 22 IU/L (15-46); BILIRUBIN,INDIRECT 0.8 mg/dl (0-1.1); BILIRUBIN,TOTAL 0.8 mg/dl (0.2-1.3); BLOOD UREA NITROGEN 66 mg/dl (7-20); CARBON DIOXIDE 23 mmol/L (21-31); CHLORIDE 111 mmol/L (97-110); CREATININE 2.45 mg/dl (0.61-1.24); GLUCOSE 97 mg/dl (70-220); POTASSIUM 4.8 mmol/L (3.5-5.1); SODIUM 141 mmol/L (135-144); TOTAL PROTEIN 6.1 g/dl (6.1-8.1)
[2018-05-26] MEDS: CHOLECALCIFEROL 2,000 UNIT CAP PO (09:26)
[2018-05-26] MEDS: FINASTERIDE 5 MG TAB PO (09:26)
[2018-05-26] MEDS: MULTIVITAMINS/MINERALS TAB PO (09:26)
[2018-05-26] MEDS: FAMOTIDINE 20 MG TAB PO (09:26)
[2018-05-26] MEDS: LORATADINE 10 MG TAB PO (09:26)
[2018-05-26] MEDS: ASCORBIC ACID 500 MG TAB PO (09:26)
[2018-05-26] MEDS: AMLODIPINE 5 MG TAB PO ×2 (09:27→21:12)
[2018-05-26] MEDS: TRIAMCINOLONE ACET 0.025% 15 GM CR TOP ×2 (09:27→21:12)
[2018-05-26] MEDS: FLUTICASONE/VILANTEROL 100-25 INH (09:28)
[2018-05-26] MEDS: EPOETIN 10000 UNITS/ML (NON ESRD/NON ONCOLOGY) SC (18:00)
[2018-05-26] MEDS: MONTELUKAST 10 MG TAB PO (21:08)
[2018-05-26] MEDS: ATORVASTATIN 20 MG TAB PO (21:08)
[2018-05-26] MEDS: HYDROCODONE/APAP (5/325) TAB PO (21:08)
[2018-05-26] MEDS: TAMSULOSIN (SR) 0.4 MG CAP PO (21:08)
[2018-05-27 07:02] LABS: ADD MAN DIFF? NO
[2018-05-27 07:05] LABS: ABNORMAL IP MESSAGE 1; EOSINOPHILS # 0.4 10^3/ul (0.0-0.5); EOSINOPHILS % 5.5 % (0.0-7.0); HEMATOCRIT 28.8 % (42.0-52.0); HEMOGLOBIN 8.2 g/dl (14.0-18.0); LYMPHOCYTES # 0.4 10^3/ul (0.8-2.9); LYMPHOCYTES % 4.5 % (15.0-51.0); MEAN CORPUSCULAR HEMOGLOBIN 27.8 pg (29.0-33.0); MEAN CORPUSCULAR HGB CONC 28.5 g/dl (32.0-37.0); MEAN CORPUSCULAR VOLUME 97.6 fl (82.0-101.0); MEAN PLATELET VOLUME 9.7 fl (7.4-10.4); MONOCYTE # 0.6 10^3/ul (0.3-0.9); MONOCYTES % 7.9 % (0.0-11.0); NEUTROPHIL # 6.2 10^3/ul (1.6-7.5); NEUTROPHILS % 80.3 % (39.0-77.0); PLATELET COUNT 222 10^3/UL (140-415); POSITIVE DIFF @See below; RED BLOOD COUNT 2.95 10^6/ul (4.70-6.10); RED CELL DISTRIBUTION WIDTH 25.7 % (11.5-14.5)
[2018-05-27 07:05] LABS: WHITE BLOOD COUNT 7.8 10^3/ul (4.8-10.8)
[2018-05-27 07:26] LABS: ANION GAP 14 (8-16); BLOOD UREA NITROGEN 65 mg/dl (7-20); CALCIUM 8.1 mg/dl (8.4-10.2); CARBON DIOXIDE 21 mmol/L (21-31); CHLORIDE 111 mmol/L (97-110); CREATININE 2.59 mg/dl (0.61-1.24); GLUCOSE 85 mg/dl (70-220); MAGNESIUM 2.8 mg/dl (1.7-2.5); PHOSPHORUS 4.4 mg/dl (2.5-4.9); POTASSIUM 4.9 mmol/L (3.5-5.1); SODIUM 141 mmol/L (135-144)
[2018-05-27] MEDS: LORATADINE 10 MG TAB PO (09:28)
[2018-05-27] MEDS: FAMOTIDINE 20 MG TAB PO (09:28)
[2018-05-27] MEDS: CHOLECALCIFEROL 2,000 UNIT CAP PO (09:29)
[2018-05-27] MEDS: MULTIVITAMINS/MINERALS TAB PO (09:29)
[2018-05-27] MEDS: FINASTERIDE 5 MG TAB PO (09:29)
[2018-05-27] MEDS: ASCORBIC ACID 500 MG TAB PO (09:29)
[2018-05-27] MEDS: POTASSIUM CHLORIDE (SR) 10 MEQ TAB PO ×2 (09:29→21:06)
[2018-05-27] MEDS: FLUTICASONE/VILANTEROL 100-25 INH (09:30)
[2018-05-27] MEDS: TRIAMCINOLONE ACET 0.025% 15 GM CR TOP ×2 (09:30→21:07)
[2018-05-27] MEDS: AMLODIPINE 5 MG TAB PO ×2 (09:31→21:07)
[2018-05-27] MEDS: BUMETANIDE 1 MG TAB PO ×2 (10:06→18:27)
[2018-05-27] MEDS: MONTELUKAST 10 MG TAB PO (21:06)
[2018-05-27] MEDS: ATORVASTATIN 20 MG TAB PO (21:06)
[2018-05-27] MEDS: TAMSULOSIN (SR) 0.4 MG CAP PO (21:07)
[2018-05-27] MEDS: morphine LIQ (10 MG/5 ML) CUP PO (21:09)
[2018-05-28] MEDS: ALBUTEROL/IPRATROPIUM (NEB) 3 ML AMP HHN (05:54)
[2018-05-28] MEDS: BUMETANIDE 1 MG TAB PO ×2 (06:23→17:22)
[2018-05-28 06:51] LABS: INR 2.78; PROTIME 30.1 Sec (11.9-14.9); PT RATIO 2.4
[2018-05-28 07:07] LABS: ANION GAP 16 (8-16); BLOOD UREA NITROGEN 69 mg/dl (7-20); CARBON DIOXIDE 21 mmol/L (21-31); CHLORIDE 111 mmol/L (97-110); CREATININE 2.63 mg/dl (0.61-1.24); GLUCOSE 99 mg/dl (70-220); POTASSIUM 5.5 mmol/L (3.5-5.1); SODIUM 142 mmol/L (135-144)
[2018-05-28] MEDS: FINASTERIDE 5 MG TAB PO (09:02)
[2018-05-28] MEDS: LORATADINE 10 MG TAB PO (09:03)
[2018-05-28] MEDS: FAMOTIDINE 20 MG TAB PO (09:03)
[2018-05-28] MEDS: CHOLECALCIFEROL 2,000 UNIT CAP PO (09:03)
[2018-05-28] MEDS: ASCORBIC ACID 500 MG TAB PO (09:03)
[2018-05-28] MEDS: MULTIVITAMINS/MINERALS TAB PO (09:03)
[2018-05-28] MEDS: TRIAMCINOLONE ACET 0.025% 15 GM CR TOP ×2 (09:04→21:39)
[2018-05-28] MEDS: AMLODIPINE 5 MG TAB PO ×2 (09:04→21:38)
[2018-05-28] MEDS: FLUTICASONE/VILANTEROL 100-25 INH (09:05)
[2018-05-28] MEDS: EPOETIN 10000 UNITS/ML (NON ESRD/NON ONCOLOGY) SC (17:21)
[2018-05-28 17:42] LABS: POTASSIUM 5.5 mmol/L (3.5-5.1)
[2018-05-28] MEDS: ATORVASTATIN 20 MG TAB PO (21:36)
[2018-05-28] MEDS: TAMSULOSIN (SR) 0.4 MG CAP PO (21:36)
[2018-05-28] MEDS: MONTELUKAST 10 MG TAB PO (21:36)
[2018-05-29] MEDS: BUMETANIDE 1 MG TAB PO (05:49)
[2018-05-29 06:10] LABS: ANION GAP 11 (8-16); BLOOD UREA NITROGEN 76 mg/dl (7-20); CARBON DIOXIDE 23 mmol/L (21-31); CHLORIDE 113 mmol/L (97-110); CREATININE 2.88 mg/dl (0.61-1.24); GLUCOSE 109 mg/dl (70-220); POTASSIUM 5.4 mmol/L (3.5-5.1); SODIUM 142 mmol/L (135-144)
[2018-05-29] MEDS: CHOLECALCIFEROL 2,000 UNIT CAP PO (08:35)
[2018-05-29] MEDS: NA POLYST SULFON 15 GM/60 ML BTL PO (08:35)
[2018-05-29] MEDS: ASCORBIC ACID 500 MG TAB PO (08:35)
[2018-05-29] MEDS: AMLODIPINE 5 MG TAB PO ×2 (08:36→21:00)
[2018-05-29] MEDS: FINASTERIDE 5 MG TAB PO (08:36)
[2018-05-29] MEDS: LORATADINE 10 MG TAB PO (08:36)
[2018-05-29] MEDS: MULTIVITAMINS/MINERALS TAB PO (08:36)
[2018-05-29] MEDS: FAMOTIDINE 20 MG TAB PO (08:38)
[2018-05-29] MEDS: TRIAMCINOLONE ACET 0.025% 15 GM CR TOP ×2 (08:38→21:15)
[2018-05-29] MEDS: FLUTICASONE/VILANTEROL 100-25 INH (08:38)
[2018-05-29] MEDS: ALBUTEROL/IPRATROPIUM (NEB) 3 ML AMP HHN (09:33)
[2018-05-29 14:56] LABS: POTASSIUM 5.2 mmol/L (3.5-5.1)
[2018-05-29 18:46] LABS: ADD UMIC NO; UR ASCORBIC ACID 40 mg/dL (NEGATIVE); UR BILIRUBIN (Dip) NEGATIVE (NEGATIVE); UR BLOOD (Dip) NEGATIVE (NEGATIVE); UR CLARITY CLEAR (CLEAR); UR COLOR YELLOW (YELLOW); UR GLUCOSE (Dip) NEGATIVE (NEGATIVE); UR KETONES (Dip) NEGATIVE (NEGATIVE); UR LEUKOCYTE ESTERASE (Dip) NEGATIVE Leu/ul (NEGATIVE); UR NITRITE (Dip) NEGATIVE (NEGATIVE); UR SPECIFIC GRAVITY (Dip) 1.011 (1.003-1.030); UR TOTAL PROTEIN (Dip) NEGATIVE (NEGATIVE); UR UROBILINOGEN (Dip) NEGATIVE (NEGATIVE)
[2018-05-29] MEDS: TAMSULOSIN (SR) 0.4 MG CAP PO (21:15)
[2018-05-29] MEDS: MONTELUKAST 10 MG TAB PO (21:15)
[2018-05-29] MEDS: ATORVASTATIN 20 MG TAB PO (21:15)
[2018-05-30 06:02] LABS: ADD MAN DIFF? NO
[2018-05-30 06:05] LABS: WHITE BLOOD COUNT 7.8 10^3/ul (4.8-10.8)
[2018-05-30 06:05] LABS: ABNORMAL IP MESSAGE 1; BASOPHILS % 0.1 % (0.0-2.0); EOSINOPHILS # 0.2 10^3/ul (0.0-0.5); EOSINOPHILS % 3.1 % (0.0-7.0); HEMATOCRIT 26.7 % (42.0-52.0); LYMPHOCYTES # 0.3 10^3/ul (0.8-2.9); LYMPHOCYTES % 3.7 % (15.0-51.0); MEAN CORPUSCULAR HEMOGLOBIN 29.6 pg (29.0-33.0); MEAN CORPUSCULAR VOLUME 98.9 fl (82.0-101.0); MEAN PLATELET VOLUME 9.2 fl (7.4-10.4); MONOCYTE # 0.7 10^3/ul (0.3-0.9); MONOCYTES % 8.6 % (0.0-11.0); NEUTROPHIL # 6.5 10^3/ul (1.6-7.5); NEUTROPHILS % 83.5 % (39.0-77.0); PLATELET COUNT 205 10^3/UL (140-415); POSITIVE DIFF @See below; RED CELL DISTRIBUTION WIDTH 26.2 % (11.5-14.5)
[2018-05-30 06:29] LABS: ANION GAP 11 (8-16); BLOOD UREA NITROGEN 75 mg/dl (7-20); CALCIUM 8.1 mg/dl (8.4-10.2); CARBON DIOXIDE 24 mmol/L (21-31); CHLORIDE 111 mmol/L (97-110); CREATININE 3.01 mg/dl (0.61-1.24); GLUCOSE 92 mg/dl (70-220); POTASSIUM 4.9 mmol/L (3.5-5.1); SODIUM 141 mmol/L (135-144)
[2018-05-30] MEDS: TAMSULOSIN (SR) 0.4 MG CAP PO ×2 (08:44→21:39)
[2018-05-30] MEDS: MULTIVITAMINS/MINERALS TAB PO (08:44)
[2018-05-30] MEDS: TRIAMCINOLONE ACET 0.025% 15 GM CR TOP ×2 (08:44→21:41)
[2018-05-30] MEDS: CHOLECALCIFEROL 2,000 UNIT CAP PO (08:44)
[2018-05-30] MEDS: FINASTERIDE 5 MG TAB PO (08:44)
[2018-05-30] MEDS: ASCORBIC ACID 500 MG TAB PO (08:44)
[2018-05-30] MEDS: FLUTICASONE/VILANTEROL 100-25 INH (08:44)
[2018-05-30] MEDS: FAMOTIDINE 20 MG TAB PO (08:44)
[2018-05-30] MEDS: LORATADINE 10 MG TAB PO (08:44)
[2018-05-30] MEDS: AMLODIPINE 5 MG TAB PO (08:45)
[2018-05-30] MEDS: LIDOCAINE 1% (MDV) 10 ML INJ (21:35)
[2018-05-31] MEDS: ALBUTEROL/IPRATROPIUM (NEB) 3 ML AMP HHN (03:17)
[2018-05-31] MEDS: FINASTERIDE 5 MG TAB PO (08:06)
[2018-05-31] MEDS: TAMSULOSIN (SR) 0.4 MG CAP PO (08:07)
[2018-05-31] MEDS: TRIAMCINOLONE ACET 0.025% 15 GM CR TOP (09:27)
== END 2018-05-31 15:05 | disposition hospice, inpatient (51) | DRG 871 ==
LOC: MS2 05-03 22:57 → E/R 12:10 → MS2 14:02
PROC: 0HDBXZZ Extraction of Right Upper Arm Skin, External Approach (ICD-10-PCS; 2018-05-07)
PROC: 30233N1 Transfusion of Nonautologous Red Blood Cells into Peripheral Vein, Percutaneous Approach (ICD-10-PCS; 2018-05-13)
PROC: 07DR3ZX Extraction of Iliac Bone Marrow, Percutaneous Approach, Diagnostic (ICD-10-PCS; principal; 2018-05-21)
PROC: 0WPBX3Z Removal of Infusion Device from Left Pleural Cavity, External Approach (ICD-10-PCS; 2018-05-28)
DX: A41.9 Sepsis, unspecified organism (principal); J18.9 Pneumonia, unspecified organism; I50.33 Acute on chronic diastolic (congestive) heart failure; J96.91 Respiratory failure, unspecified with hypoxia; G92 Toxic encephalopathy; N39.0 Urinary tract infection, site not specified; N17.9 Acute kidney failure, unspecified; I13.0 Hypertensive heart and chronic kidney disease with heart failure and stage 1 through stage 4 chronic kidney disease, or unspecified chronic kidney disease; J90 Pleural effusion, not elsewhere classified; I25.10 Atherosclerotic heart disease of native coronary artery without angina pectoris; E78.5 Hyperlipidemia, unspecified; J45.909 Unspecified asthma, uncomplicated; N18.9 Chronic kidney disease, unspecified; D63.1 Anemia in chronic kidney disease; N40.1 Benign prostatic hyperplasia with lower urinary tract symptoms; R33.8 Other retention of urine; I27.20 Pulmonary hypertension, unspecified; I35.0 Nonrheumatic aortic (valve) stenosis; B96.1 Klebsiella pneumoniae [K. pneumoniae] as the cause of diseases classified elsewhere; R65.20 Severe sepsis without septic shock; D50.9 Iron deficiency anemia, unspecified; E87.6 Hypokalemia; L98.9 Disorder of the skin and subcutaneous tissue, unspecified; Z86.718 Personal history of other venous thrombosis and embolism; M19.90 Unspecified osteoarthritis, unspecified site; Z95.1 Presence of aortocoronary bypass graft; Z79.01 Long term (current) use of anticoagulants; Z95.0 Presence of cardiac pacemaker
CPT/HCPCS: 36415; 36430; 36589; 36600; 70450; 71045; 71250; 76775; 76856; 77075; 80048; 80053; 80061; 81001; 81003; 82270; 82306; 82378; 82550; 82553; 82570; 82607; 82668; 82728; 82784; 82803; 83010; 83036; 83540; 83605; 83615; 83735; 84100; 84132; 84155; 84156; 84165; 84166; 84300; 84436; 84443; 84479; 84484; 85025; 85045; 85049; 85610; 85651; 85730; 86320; 86325; 86850; 86900; 86901; 86920; 87040; 87086; 87400; 88184; 88185; 88305; 88311; 88313; 89190; 92526; 92610; 93005; 93306; 94640; 94664; 96374; 96375; 97110; 97116; 97162; 97530; 99285-25